=== PATIENT | male | born 1940 | race Hispanic/Latino ===

== ENCOUNTER 2019-02-22 15:53 | Inpatient (IN) | payer MEDICARE ==
--- NOTE | 2019-02-22 16:36 | ED PDOC ---
HPI: General Adult Time Seen by Provider: 02/22/19 16:26 Chief Complaint (Nursing): Abnormal Labs Chief Complaint (Provider): bodyaches/dizziness/ positive blood cultures History Per: Patient (78 y/o male h/o lymphoma recent d/c from hospital after admission for possible pneumonia called back for positive blood cultures noted. States he has dizziness and bodyaches noted. Patient is hearing impaired; has left hearing devices at home. Was noted to have normal cxr but admitted 02/21 for clinical pneumonia.) Past Medical History Reviewed: Historical Data, Nursing Documentation, Vital Signs Vital Signs: Last Vital Signs Temp 97.7 F 02/22/19 16:15 Pulse 84 02/22/19 16:15 Resp 16 02/22/19 16:15 BP 135/80 02/22/19 16:15 Pulse Ox 95 02/22/19 16:15 Primary Care Provider: Procedure,Nonphys - Medical History PMH: Malignancy (lymphoma; currently in remission) - Family History Family History: States: Unknown Family Hx - Home Medications Home Medications: Ambulatory Orders Medication Instructions Recorded Acetaminophen [Tylenol] 650 mg PO Q4 PRN #16 capsule 02/21/19 Azithromycin [Zithromax] 500 mg PO DAILY #7 tab 02/21/19 - Allergies Allergies/Adverse Reactions: Allergies Allergy/AdvReac Type Severity Reaction Status Date / Time No Known Allergies Allergy Verified 02/22/19 16:16 Review of Systems ROS Statement: Except As Marked, All Systems Reviewed And Found Negative Constitutional: Positive for: Malaise Musculoskeletal: Positive for: Other (bodyaches) Neurological: Positive for: Dizziness Physical Exam - Reviewed Nursing Documentation Reviewed: Yes Vital Signs Reviewed: Yes - Physical Exam Appears: Positive for: Well, Non-toxic, No Acute Distress Head Exam: Positive for: ATRAUMATIC, NORMAL INSPECTION, NORMOCEPHALIC Skin: Positive for: Normal Color, Warm, DRY Eye Exam: Positive for: EOMI, Normal appearance, PERRL ENT: Positive for: Normal ENT Inspection Neck: Positive for: Normal, Painless ROM Cardiovascular/Chest: Positive for: Regular Rate, Rhythm Respiratory: Positive for: CNT, Normal Breath Sounds Gastrointestinal/Abdominal: Positive for: Normal Exam, Soft Back: Positive for: Normal Inspection Extremity: Positive for: Normal ROM Neurological/Psych: Positive for: Awake, Alert, Normal Tone - Laboratory Results Result Diagrams: 02/22/19 16:55 02/22/19 16:55 - ECG ECG Rhythm: Positive for: Sinus Rhythm (NSR 81BPM; NO ECTOPY; NO ACUTE CHANGES DONE AT 16:38) O2 Sat by Pulse Oximetry: 95 Disposition - Clinical Impression Clinical Impression: Bacteremia - Patient ED Disposition Is Patient to be Admitted: Yes - Disposition Disposition Time: 16:34 Condition: FAIR - Pt Status Changed To: Hospital Disposition Of: Inpatient - Admit Certification Admit to Inpatient:: After my assessment, the patient will require hospitalization for at least two midnights. This is because of the severity of symptoms shown, intensity of services needed, and/or the medical risk in this patient being treated as an outpatient.
--- NOTE | 2019-02-22 16:50 | CP.PCM.HP ---
<Maciel Duffy - Last Filed: 02/22/19 17:40> History of Present Illness - History of Present Illness History of Present Illness: HPI: 78 yr old M with PMHx of lymphoma in remission presents to ED due to being found to have two sets of positive blood cultures. Pt was admitted on 02/21 for clinical pneumonia and discharged with PO antibiotic therapy. Upon further questioning, patient reports having several days of profuse night sweats, fatigue, generalized malaise and arthralgias. He has contacted his hem/onc dr as well who told him to return for proper treatment. He reports having ureteral stents replaced several months ago and usually gets them replaced every 6 months. Denies urinary symptoms or back pain. No other complaints/concerns. ROS: 12 points reviewed, found to be negative unless otherwise mentioned in HPI [place] [place] PMHx: lymphoma in remission, hx multiple clavicle fractures SurgHx: left total knee replacement, right zygomatic bone repair, FMHx: non contributory SocHx: denies Etoh/drugs; former tobacco use-quit 50 yrs ago Medications: none Allergies: NKDA Present on Admission - Present on Admission Any Indicators Present on Admission: No History of DVT/PE: No History of Uncontrolled Diabetes: No Urinary Catheter: No Decubitus Ulcer Present: No Past Patient History - Past Social History Smoking Status: Former Smoker Alcohol: None Drugs: Denies - PSYCHIATRIC Hx Substance Use: No - SURGICAL HISTORY Other/Comment: Left knee replacement. left shoulder. Bilateral renal stents. Right eye surgery - ANESTHESIA Hx Anesthesia: Yes Hx Anesthesia Reactions: No Meds Allergies/Adverse Reactions: Allergies Allergy/AdvReac Type Severity Reaction Status Date / Time No Known Allergies Allergy Verified 02/22/19 16:16 Physical Exam - Constitutional Appears: Non-toxic, No Acute Distress - Head Exam Head Exam: ATRAUMATIC, NORMOCEPHALIC - Eye Exam Eye Exam: EOMI Pupil Exam: PERRL - ENT Exam ENT Exam: Mucous Membranes Moist - Respiratory Exam Respiratory Exam: Clear to Auscultation Bilateral, NORMAL BREATHING PATTERN - Cardiovascular Exam Cardiovascular Exam: REGULAR RHYTHM, RRR, +S1, +S2. absent: Tachycardia, Gallop, JVD, Rubs, Systolic Murmur - Extremities Exam Extremities exam: Positive for: normal inspection, pedal pulses present. Negative for: pedal edema - Neurological Exam Neurological exam: Alert, CN II-XII Intact, Oriented x3, Reflexes Normal - Psychiatric Exam Psychiatric exam: Normal Affect, Normal Mood - Skin Skin Exam: Dry, Intact, Normal Color, Warm Results - Vital Signs Recent Vital Signs: Last Vital Signs Temp 97.7 F 02/22/19 16:15 Pulse 84 02/22/19 16:15 Resp 16 02/22/19 16:15 BP 135/80 02/22/19 16:15 Pulse Ox 95 02/22/19 16:36 Assessment & Plan - Assessment and Plan (Free Text) Assessment: 78 yr old M with PMHx of lymphoma in remission re-admitted for bacteremia likely secondary to a pulmonary source. Pt is afebrile and hemodynamically stable. Plan: Bacteremia afebrile, mild elevation in leukocytes Blood cultures: gram + cocci x 2 likely pulmonary source start Vancomycin/Zosyn ID Consult pending, recommendations appreciated repeat labs in AM fever control Prophylaxis: Lovenox 40mg SC QD Code Status full code <Walker Anthony D - Last Filed: 02/22/19 17:52> Results - Vital Signs Recent Vital Signs: Last Vital Signs Temp 97.7 F 02/22/19 16:15 Pulse 84 02/22/19 16:15 Resp 16 02/22/19 16:15 BP 135/80 02/22/19 16:15 Pulse Ox 95 02/22/19 17:46 - Labs Labs: Laboratory Results - last 24 hr 02/22/19 16:48 pO2 15 L VBG pH 7.36 VBG pCO2 51 VBG HCO3 24.6 VBG Total CO2 30.4 H VBG O2 Sat (Calc) 17.9 L VBG Base Excess 2.4 H VBG Potassium 4.7 Sodium 135.0 Chloride 103.0 Glucose 101 Lactate 1.6 FiO2 21.0 Venous Blood Potassium 4.7 Attending/Attestation - Attestation I have personally seen and examined this patient.: Yes I have fully participated in the care of the patient.: Yes I have reviewed all pertinent clinical information: Yes Notes (Text): 02/22/19 17:49 Patient seen and examined with resident. Case discussed and agreed with assessment and plan of management. Patient was diagnosed and discharged with URI yesterday but culture came out positive with gram + cocci in 2 bottles. He was called back and admitted for bacteremia.
[2019-02-22 16:54] LABS: VENOUS BLOOD GAS BASE EXCESS 2.4 mmol/L (0.0-2.0); VENOUS BLOOD GAS PCO2 51 mmHg (40-60); VENOUS BLOOD GAS PO2 15 mm/Hg (30-55); VENOUS BLOOD PH 7.36 (7.32-7.43)
[2019-02-22] MEDS: Piperacillin/Tazobact 3.375 GM in Sodium Chloride 0.9% 100 ML IVPB SCH ×2 (17:35→21:46)
[2019-02-22 17:37] LABS: BASO % 0.3 % (0.0-2.0); EOS # 0.1 K/uL (0.0-0.7); EOS % 0.7 % (0.0-4.0); HEMOGLOBIN 12.8 g/dL (12.0-18.0); LYMPH % 21.7 % (20.0-40.0); MEAN CELL VOLUME 94.3 fl (80.0-94.0); MEAN CORPUSCULAR HEMOGLOBIN 31.4 pg (27.0-31.0); MEAN CORPUSCULAR HGB CONC 33.2 g/dL (33.0-37.0); MEAN PLATELET VOLUME 9.4 fl (7.2-11.7); MONO % 11.2 % (0.0-10.0); NEUT % 66.1 % (50.0-75.0); NRBC % 0.1 % (0.0-0.0); RBC 4.08 Mil/uL (4.40-5.90); RED CELL DISTRIBUTION WIDTH 14.6 % (11.5-14.5)
[2019-02-22 17:54] LABS: ALB/GLOB RATIO 1.1 (1.0-2.1); ALBUMIN 3.9 g/dL (3.5-5.0); ALT/SGPT 27 U/L (21-72); AST/SGOT 33 U/L (17-59); BLOOD UREA NITROGEN 25 mg/dl (9-20); CALCIUM 8.9 mg/dL (8.4-10.2); GFR NON-AFRICAN AMERICAN > 60
[2019-02-23] MEDS: Piperacillin/Tazobact 3.375 GM in Sodium Chloride 0.9% 100 ML IVPB SCH ×4 (03:26→23:00)
[2019-02-23 05:32] LABS: BASO % 0.4 % (0.0-2.0); EOS # 0.1 K/uL (0.0-0.7); EOS % 1.6 % (0.0-4.0); LYMPH # 2.2 K/uL (1.0-4.3); LYMPH % 24.8 % (20.0-40.0); MEAN CELL VOLUME 92.6 fl (80.0-94.0); MEAN CORPUSCULAR HEMOGLOBIN 31.5 pg (27.0-31.0); MEAN PLATELET VOLUME 8.6 fl (7.2-11.7); MONO # 0.9 K/uL (0.0-0.8); MONO % 9.9 % (0.0-10.0); NEUT # 5.7 K/uL (1.8-7.0); NEUT % 63.3 % (50.0-75.0); RBC 3.82 Mil/uL (4.40-5.90); RED CELL DISTRIBUTION WIDTH 14.5 % (11.5-14.5)
[2019-02-23 06:06] LABS: ALB/GLOB RATIO 1.1 (1.0-2.1); ALBUMIN 3.5 g/dL (3.5-5.0); ALT/SGPT 28 U/L (21-72); AST/SGOT 26 U/L (17-59); BLOOD UREA NITROGEN 18 mg/dl (9-20); CALCIUM 8.6 mg/dL (8.4-10.2); GFR NON-AFRICAN AMERICAN > 60
[2019-02-23] MEDS: Pantoprazole 40 mg EC Tab PO SCH (09:27)
[2019-02-23] MEDS: Enoxaparin 40 mg Syringe SC SCH (09:28)
--- NOTE | 2019-02-23 10:04 | CP.PCM.PN ---
<Maciel Duffy - Last Filed: 02/23/19 13:21> Subjective - Date & Time of Evaluation Date of Evaluation: 02/23/19 Time of Evaluation: 10:04 - Subjective Subjective: pt seen and evaluated at bedside, no acute events overnight. Low-grade fever last night. Labs/overnight documentation reviewed. Pt reports feeling "a little better today". OOB/ambulating, tolerating PO intake without issue. No other complaints/concerns. Objective - Vital Signs/Intake and Output Vital Signs (last 24 hours): Temp Pulse Resp BP Pulse Ox 98.4 F 82 18 116/68 98 02/23/19 07:52 02/23/19 07:52 02/23/19 07:52 02/23/19 07:52 02/23/19 07:52 - Medications Medications: Current Medications Acetaminophen (Tylenol 325mg Tab) 650 mg PO Q6 PRN PRN Reason: Fever >100.4 F Enoxaparin Sodium (Lovenox) 40 mg SC DAILY MILEY; Protocol Last Admin: 02/23/19 09:28 Dose: 40 mg Piperacillin Sod/Tazobactam (Sod 3.375 gm/ Sodium Chloride) 100 mls @ 100 mls/hr IVPB Q6 MILEY; Protocol Last Admin: 02/23/19 09:27 Dose: 100 mls/hr Vancomycin HCl 1 gm/ Sodium (Chloride) 250 mls @ 166.667 mls/hr IVPB Q12 MILEY; Protocol Last Admin: 02/23/19 09:28 Dose: 166.667 mls/hr Pantoprazole Sodium (Protonix Ec Tab) 40 mg PO DAILY MILEY Last Admin: 02/23/19 09:27 Dose: 40 mg - Labs Labs: 02/23/19 04:20 02/23/19 04:20 - Constitutional Appears: Non-toxic, No Acute Distress - Head Exam Head Exam: ATRAUMATIC, NORMOCEPHALIC Additional comments: no sinus tenderness - Eye Exam Eye Exam: EOMI, Normal appearance, PERRL - ENT Exam ENT Exam: Mucous Membranes Moist, Normal Exam, Normal Oropharynx - Neck Exam Neck Exam: Full ROM, Normal Inspection. absent: Lymphadenopathy, Tenderness - Respiratory Exam Respiratory Exam: Clear to Ausculation Bilateral, NORMAL BREATHING PATTERN. absent: Rales, Rhonchi, Wheezes - Cardiovascular Exam Cardiovascular Exam: REGULAR RHYTHM, RRR, +S1, +S2. absent: JVD, Rubs, Murmur - GI/Abdominal Exam GI & Abdominal Exam: Soft, Normal Bowel Sounds. absent: Guarding, Rigid, Tenderness - Extremities Exam Extremities Exam: Full ROM, Normal Capillary Refill, Normal Inspection. absent: Pedal Edema Additional comments: no maceration or injury at feet or between toes - Neurological Exam Neurological Exam: Alert, Awake, CN II-XII Intact, Normal Gait, Oriented x3 - Psychiatric Exam Psychiatric exam: Normal Affect, Normal Mood - Skin Skin Exam: Dry, Intact, Normal Color, Warm. absent: Erythema, Rash, Vesicles Assessment and Plan - Assessment and Plan (Free Text) Assessment: 78 yr old M with PMHx of lymphoma in remission re-admitted for bacteremia likely secondary to a pulmonary source. Pt is occassionally having low grade fevers and is otherwise hemodynamically stable. Plan: Bacteremia: Abx day #2 afebrile, mild elevation in leukocytes, normalized today Blood cultures: gram + cocci x 2, awaiting 3rd blood culture result likely pulmonary source -repeat CXR on 02/23: improvement in aeration and atelectasis -ECHO completed, results pending start Vancomycin 1gm Q12/Zosyn 3.375 Q6H follow up vancomycin trough ID Consult, pt will require 10 days of treatment, abx day #2 repeat labs in AM fever control Prophylaxis: Lovenox 40mg SC QD Code Status full code <Walker Anthony D - Last Filed: 02/23/19 15:15> Objective - Vital Signs/Intake and Output Vital Signs (last 24 hours): Temp Pulse Resp BP Pulse Ox 97.4 F L 76 18 111/71 98 02/23/19 11:58 02/23/19 11:58 02/23/19 11:58 02/23/19 11:58 02/23/19 11:58 - Medications Medications: Current Medications Acetaminophen (Tylenol 325mg Tab) 650 mg PO Q6 PRN PRN Reason: Fever >100.4 F Enoxaparin Sodium (Lovenox) 40 mg SC DAILY MILEY; Protocol Last Admin: 02/23/19 09:28 Dose: 40 mg Piperacillin Sod/Tazobactam (Sod 3.375 gm/ Sodium Chloride) 100 mls @ 100 mls/hr IVPB Q6 MILEY; Protocol Last Admin: 02/23/19 09:27 Dose: 100 mls/hr Vancomycin HCl 1 gm/ Sodium (Chloride) 250 mls @ 166.667 mls/hr IVPB Q12 MILEY; Protocol Last Admin: 02/23/19 09:28 Dose: 166.667 mls/hr Pantoprazole Sodium (Protonix Ec Tab) 40 mg PO DAILY IMLEY Last Admin: 02/23/19 09:27 Dose: 40 mg - Labs Labs: 02/23/19 04:20 02/23/19 04:20 Attending/Attestation - Attestation I have personally seen and examined this patient.: Yes I have fully participated in the care of the patient.: Yes I have reviewed all pertinent clinical information, including history, physical exam and plan: Yes Notes (Text): 02/23/19 15:15 Patient seen and examined with resident. Case discussed and agreed with assessment and plan.
--- NOTE | 2019-02-23 10:10 | RAD ---
Date of service: 02/23/2019 PROCEDURE: CHEST RADIOGRAPH, 1 VIEW HISTORY: bacteremia COMPARISON: 02/21/2019 FINDINGS: LUNGS: No interval consolidation. The patchy and coalescent coarse bronchovascular markings at the right lung base appear less cord and here improved aeration is now suggested. No interval consolidation noted. Lung volumes appear within normal limits. PLEURA: No pneumothorax or pleural fluid seen. CARDIOVASCULAR: There is presence of aortic atherosclerotic calcification on x-ray. Tortuous thoracic aorta-similar minimal cardiomegaly. OSSEOUS STRUCTURES: Thoraco lumbar spondylosis. Bilateral shoulder arthrosis. Orthopedic anchors in right humeral head/tuberosity ill definition to the right humeral head cortex here similar appearing VISUALIZED UPPER ABDOMEN: Normal. OTHER FINDINGS: None. IMPRESSION: Interval improved aeration. Interval diminished courses bronchovascular marking appearance right medial lung base. Findings suggest improvement-likely some re-expansion of prior atelectatic changes. No interval acute cardiopulmonary pathology appreciated. Other findings as above.
--- NOTE | 2019-02-23 11:36 | CP.PCM.PN ---
Subjective - Date & Time of Evaluation Date of Evaluation: 02/23/19 Time of Evaluation: 08:00 - Subjective Subjective: 78 yr old M with PMHx of lymphoma in remission presents to ED with complaint of dry cough, nasal congestion and intermittent dizziness for 3 days. Associated symptom includes body aches and subjective fever. Blood cultures + for cocci 2/2 sets Patient recalled for IV antibiotic rx Objective - Vital Signs/Intake and Output Vital Signs (last 24 hours): Temp Pulse Resp BP Pulse Ox 98.4 F 82 18 116/68 98 02/23/19 07:52 02/23/19 07:52 02/23/19 07:52 02/23/19 07:52 02/23/19 07:52 - Medications Medications: Current Medications Acetaminophen (Tylenol 325mg Tab) 650 mg PO Q6 PRN PRN Reason: Fever >100.4 F Enoxaparin Sodium (Lovenox) 40 mg SC DAILY MILEY; Protocol Last Admin: 02/23/19 09:28 Dose: 40 mg Piperacillin Sod/Tazobactam (Sod 3.375 gm/ Sodium Chloride) 100 mls @ 100 mls/hr IVPB Q6 MILEY; Protocol Last Admin: 02/23/19 09:27 Dose: 100 mls/hr Vancomycin HCl 1 gm/ Sodium (Chloride) 250 mls @ 166.667 mls/hr IVPB Q12 MILEY; Protocol Last Admin: 02/23/19 09:28 Dose: 166.667 mls/hr Pantoprazole Sodium (Protonix Ec Tab) 40 mg PO DAILY MILEY Last Admin: 02/23/19 09:27 Dose: 40 mg - Labs Labs: 02/23/19 04:20 02/23/19 04:20 - Constitutional Appears: Non-toxic, Chronically Ill - Head Exam Head Exam: NORMOCEPHALIC - Eye Exam Eye Exam: absent: Scleral icterus - ENT Exam ENT Exam: Mucous Membranes Dry - Neck Exam Neck Exam: absent: Lymphadenopathy - Respiratory Exam Respiratory Exam: Decreased Breath Sounds - Cardiovascular Exam Cardiovascular Exam: REGULAR RHYTHM - GI/Abdominal Exam GI & Abdominal Exam: Distended, Soft - Rectal Exam Rectal Exam: Deferred - Exam Exam: NORMAL INSPECTION - Extremities Exam Extremities Exam: absent: Pedal Edema - Back Exam Back Exam: absent: CVA tenderness (L), CVA tenderness (R) - Neurological Exam Neurological Exam: Alert, Awake - Psychiatric Exam Psychiatric exam: Depressed - Skin Skin Exam: Dry Assessment and Plan (1) Bacteremia Status: Acute - Assessment and Plan (Free Text) Assessment: CONT EMPIRIC IV RX
--- NOTE | 2019-02-23 11:45 | PQF ---
PROVIDER RESPONSE TEXT: 1. Probable pulmonary cause of bacteremia 2. Gram + cocci bacteremia, organism pending, no device associated bacteremia REVIEWER QUERY TEXT: Bacteremia Underlying Cause Please read the 2 (two) queries listed below: 1) 02/23 query:Bacteremia is documented in the Medical Record. Please specify the underlying cause of bacteremia (suspected, probable, questionable, or clinical is acceptable if documented at the time of discharge) 2) 02/22 query:previous admission: query remains unanswered at this time: : Please clarify if there i s or is not an additional diagnosis to go along with the following: Pulse: 95->92->96; H and P docu mentation of mild tachycardia with a subjective fever :WBC: 12.1 left shift: blood culture x 2: pre liminary: gram positive cocci; in a patient with a Diagnosis of Clinical Pneumonia with a history of Lymphoma. OR: Unable to determine OR: Other explanation of clinical finding -02/21: Blood cultures x2: preliminary: gram positive cocci 02/21/: ER note: Additional complaints; reports associated dizziness, dry cough, and congestion. He al so a tactile fever last night 0631 On reassessment, patient reports persistent tactile fever; he sta byron he has been in remission for lymphoma x 3 years so not currently immunocompromised. Patient to be admitted due to likely clinical pneumonia; IV rocephin and zithromax started. Clinical Impression: F ever in adult, Pneumonia 02/21: H and P:PMHx of lymphoma in remission presents to ED with complaint of dry cough, nasal congest ion and intermittent dizziness for 3 days. Associated symptom includes body aches and subjective feve r. Assessment: Clinical pneumonia -acute, stable -URI symptoms, mild tachycardia and WBC 12.1, neutro denis 79.4 -CXR: crowding of the bronchovascular markings, limited patchy density right base could ref lect atelectasis or potential infiltrate. 02/23: CXR: Interval improved aeration.Interval diminished courses bronchovascular marking appearance right medial lung base.Findings suggest improvement-likely some re-expansion of prior atelectatic changes.No interval acute cardiopulmonary pathology appreciated. 02/22 ER note: h/ o lymphoma recent d/c from hospital after admission for possible pneumonia called ba ck for + bld. cultures noted.States he has dizziness and bodyaches; noted to have normal cxr admitted 02/21 for clinical pneumonia. Clinical Impression .:Bacteremia 02/22: H and P: PMHx of lymphoma in remission presents to ED due to being found to have two sets of + blood cultures- admitted on 02/21 for clinical pneumonia and d/adalberto with PO AB; Upon further questioni ng, reports having several days of profuse night sweats, fatigue, generalized malaise and arthralgias ; reports having ureteral stents replaced several mnths ago and usually gets them replaced every 6 mo nths. Attestation: was dxed. and d/adalberto with URI yesterday but culture came out +with gram + cocci in 2 eric les; called back and admitted for bacteremia. --IV: vancomycin and piperacillin Please specify associated organism causing bacteremia Please also clarify if bacteremia is due to a device (please specify device) The patient's Clinical Indicators include: --- Query created by: Fany Tolliver on 02/23/2019 11:34 AM Electronically signed by: Maciel Duffy 02/23/2019 11:42 AM
--- NOTE | 2019-02-23 11:52 | CARD ---
APPROVED REPORT Date of service: 02/22/2019 EKG Measurement [id number] <Conclusion> Normal sinus rhythm Normal ECG
--- NOTE | 2019-02-23 12:13 | CP.PCM.CON ---
History of Present Illness - History of Present Illness History of Present Illness: 78 yr old M with PMHx of lymphoma in remission presents to ED with complaint of dry cough, nasal congestion and intermittent dizziness for 3 days. Associated symptom includes body aches and subjective fever. Blood cultures + for cocci 2/2 sets Patient recalled for IV antibiotic rx PMHx: lymphoma in remission, hx multiple clavicle fractures SurgHx: left total knee replacement, right zygomatic bone repair, FMHx: non contributory SocHx: denies Etoh/drugs; former tobacco use-quit 50 yrs ago Medications: none Allergies: NKDA Review of Systems - Review of Systems All systems: reviewed and no additional remarkable complaints except - Constitutional Constitutional: As Per HPI - EENT Eyes: absent: As Per HPI, Blind Spots, Blurred Vision, Change in Vision, Decreased Night Vision, Diplopia, Discharge, Dry Eye, Exophthalmos, Floaters, Irritation, Itchy Eyes, Loss of Peripheral Vision, Pain, Photophobia, Requires Corrective Lenses, Sees Flashes, Spots in Vision, Tunnel Vision, Other Visual Disturbances, Loss of Vision, Other Ears: absent: As Per HPI, Decreased Hearing, Ear Discharge, Ear Pain, Tinnitus, Abnormal Hearing, Disequilibrium, Dizziness, Other Nose/Mouth/Throat: absent: As Per HPI, Epistaxis, Nasal Congestion, Nasal Discharge, Nasal Obstruction, Nasal Trauma, Nose Pain, Post Nasal Drip, Sinus Pain, Sinus Pressure, Bleeding Gums, Change in Voice, Dental Pain, Dry Mouth, Dysphagia, Halitosis, Hoarsness, Lip Swelling, Mouth Lesions, Mouth Pain, Odynophagia, Sore Throat, Throat Swelling, Tongue Swelling, Facial Pain, Neck Pain, Neck Mass, Other - Cardiovascular Cardiovascular: absent: As Per HPI, Acrocyanosis, Chest Pain, Chest Pain at Rest, Chest Pain with Activity, Claudication, Diaphoresis, Dyspnea, Dyspnea on Exertion, Edema, Irregular Heart Rhythm, Pain Radiating to Arm/Neck/Jaw, Leg Edema, Leg Ulcers, Lightheadedness, Orthopnea, Palpitations, Paroxysmal Nocturnal Dyspnea, Pedal Edema, Radiating Pain, Rapid Heart Rate, Slow Heart Rate, Syncope, Other - Respiratory Respiratory: absent: As Per HPI, Cough, Dyspnea, Hemoptysis, Dyspnea on Exertion, Wheezing, Snoring, Stridor, Pain on Inspiration, Chest Congestion, Excessive Mucous Production, Change in Mucous Color, Pain with Coughing, Other - Gastrointestinal Gastrointestinal: absent: As Per HPI, Abdominal Pain, Belching, Bloating, Change in Bowel Habits, Change in Stool Character, Coffee Ground Emesis, Constipation, Cramping, Diarrhea, Dyspepsia, Dysphagia, Early Satiety, Excessive Flatus, Fecal Incontinence, Heartburn, Hematemesis, Hematochezia, Loose Stools, Melena, Nausea, Odynophagia, Temesmus, Vomiting, Other - Genitourinary Genitourinary: absent: As Per HPI, Change in Urinary Stream, Difficulty Urinating, Dysuria, Flank Pain, Hematuria, Pyuria, Nocturia, Urinary Incontinence, Urinary Frequency, Urinary Hesitance, Urinary Urgency, Voiding Freq/Small Amts, Freq UTI, Hx Renal/Bladder Calculi, Hx /Renal Surgery, Bladder Distension, Other - Musculoskeletal Musculoskeletal: absent: As Per HPI, Abnormal Gait, Arthralgias, Atrophy, Back Pain, Deformity, Joint Swelling, Limited Range of Motion, Loss of Height, Muscle Cramps, Muscle Weakness, Myalgias, Neck Pain, Numbness, Radiating Pain into Limb, Stiffness, Tingling, Other - Integumentary Integumentary: absent: As Per HPI, Acne, Alopecia, Bleeding Lesions, Change in Hair, Change in Nails, Change in Pigmentation, Changing Lesions, Dry Skin, E rythema, Furuncle, Hirsutism, Lesions, New Lesions, Non-Healing Lesions, Photosensitivity, Pruritus, Rash, Skin Pain, Skin Ulcer, Sores, Striae, Swelling, Unusual Bruising, Wounds, Jaundice, Other - Neurological Neurological: absent: As Per HPI, Abnormal Gait, Abnormal Hearing, Abnormal Movements, Abnormal Speech, Behavioral Changes, Burning Sensations, Confusion, Convulsions, Disequilibrium, Dizziness, Numbness, Focal Weakness, Frequent Falls, Headaches, Lack of Coordination, Loss of Vision, Memory Loss, Paresthesias, Radicular Pain, Restless Legs, Sensory Deficit, Syncope, Tingling, Tremor, Vertigo, Weakness, Other Visual Disturbances, Other - Psychiatric Psychiatric: absent: As Per HPI, Abnormal Sleep Pattern, Anhedonia, Anxiety, Auditory Hallucinations, Behavioral Changes, Change in Appetite, Change in Libi do, Confusion, Depression, Difficulty Concentrating, Hallucinations, Homicidal Ideation, Hopelessness, Irritability, Memory Loss, Mood Swings, Panic Attacks, Paranoia, Suicidal Ideation, Visual Hallucinations, Tactile Hallucinations, Other - Endocrine Endocrine: absent: As Per HPI, Change in Body Appearance, Change in Libido, Cold Intolorance, Deepening of Voice, Excessive Sweating, Fatigue, Flushing, Heat Intolorance, Increase in Ring/Shoe/Hat Size, Palpitations, Polydipsia, Polyphagia, Polyuria, Other - Hematologic/Lymphatic Hematologic: absent: As Per HPI, Easy Bleeding, Easy Bruising, Lymphadenopathy, Other Past Patient History - Past Social History Smoking Status: Former Smoker Alcohol: None Drugs: Denies - PSYCHIATRIC Hx Substance Use: No - SURGICAL HISTORY Other/Comment: Left knee replacement. left shoulder. Bilateral renal stents. Right eye surgery - ANESTHESIA Hx Anesthesia: Yes Hx Anesthesia Reactions: No Meds Allergies/Adverse Reactions: Allergies Allergy/AdvReac Type Severity Reaction Status Date / Time No Known Allergies Allergy Verified 02/22/19 16:16 - Medications Medications: Current Medications Acetaminophen (Tylenol 325mg Tab) 650 mg PO Q6 PRN PRN Reason: Fever >100.4 F Enoxaparin Sodium (Lovenox) 40 mg SC DAILY [facility]; Protocol Piperacillin Sod/Tazobactam (Sod 3.375 gm/ Sodium Chloride) 100 mls @ 100 mls/hr IVPB Q6 [facility]; Protocol Last Admin: 02/22/19 21:46 Dose: 100 mls/hr Vancomycin HCl 1 gm/ Sodium (Chloride) 250 mls @ 166.667 mls/hr IVPB Q12 [facility]; Protocol Last Admin: 02/22/19 21:35 Dose: 166.667 mls/hr Pantoprazole Sodium (Protonix Ec Tab) 40 mg PO DAILY [facility] Physical Exam - Constitutional Appears: Non-toxic, No Acute Distress, Chronically Ill - Head Exam Head Exam: ATRAUMATIC, NORMAL INSPECTION, NORMOCEPHALIC - Eye Exam Eye Exam: EOMI, Normal appearance, PERRL Pupil Exam: NORMAL ACCOMODATION, PERRL - ENT Exam ENT Exam: Mucous Membranes Moist, Normal Exam - Neck Exam Neck exam: Positive for: Normal Inspection - Respiratory Exam Respiratory Exam: Clear to Auscultation Bilateral, NORMAL BREATHING PATTERN - Cardiovascular Exam Cardiovascular Exam: REGULAR RHYTHM - GI/Abdominal Exam GI & Abdominal Exam: Normal Bowel Sounds, Soft. absent: Tenderness - Rectal Exam Rectal Exam: Deferred - Extremities Exam Extremities exam: Positive for: normal inspection - Back Exam Back exam: NORMAL INSPECTION - Neurological Exam Neurological exam: Alert, CN II-XII Intact, Normal Gait, Oriented x3, Reflexes Normal - Psychiatric Exam Psychiatric exam: Normal Affect, Normal Mood - Skin Skin Exam: Dry, Intact, Normal Color, Warm Results - Vital Signs Recent Vital Signs: Last Vital Signs Temp 97.9 F 02/22/19 21:33 Pulse 84 02/22/19 21:33 Resp 20 02/22/19 21:33 BP 133/79 02/22/19 21:33 Pulse Ox 97 02/22/19 21:33 - Labs Result Diagrams: 02/23/19 04:20 02/23/19 04:20 Labs: Laboratory Results - last 24 hr 02/22/19 02/22/19 02/22/19 16:48 16:55 16:55 WBC 9.0 RBC 4.08 L Hgb 12.8 Hct 38.5 MCV 94.3 H MCH 31.4 H MCHC 33.2 RDW 14.6 H Plt Count 286 MPV 9.4 Neut % (Auto) 66.1 Lymph % (Auto) 21.7 [place] % (Auto) 11.2 H Eos % (Auto) 0.7 Baso % (Auto) 0.3 Neut # (Auto) 6.0 Lymph # (Auto) 2.0 [place] # (Auto) 1.0 H Eos # (Auto) 0.1 Baso # (Auto) 0.0 pO2 15 L VBG pH 7.36 VBG pCO2 51 VBG HCO3 24.6 VBG Total CO2 30.4 H VBG O2 Sat (Calc) 17.9 L VBG Base Excess 2.4 H VBG Potassium 4.7 Sodium 135.0 137 Chloride 103.0 98 Glucose 101 Lactate 1.6 FiO2 21.0 Potassium 4.0 Carbon Dioxide 29 Anion Gap 14 BUN 25 H Creatinine 1.1 Est GFR ( Amer) > 60 Est GFR (Non-Af Amer) > 60 Random Glucose 101 Calcium 8.9 Total Bilirubin 0.5 AST 33 ALT 27 Alkaline Phosphatase 53 Troponin I 0.0990 Total Protein 7.3 Albumin 3.9 Globulin 3.4 Albumin/Globulin Ratio 1.1 Procalcitonin Venous Blood Potassium 4.7 02/22/19 18:00 WBC RBC Hgb Hct MCV MCH MCHC RDW Plt Count MPV Neut % (Auto) Lymph % (Auto) [place] % (Auto) Eos % (Auto) Baso % (Auto) Neut # (Auto) Lymph # (Auto) [place] # (Auto) Eos # (Auto) Baso # (Auto) pO2 VBG pH VBG pCO2 VBG HCO3 VBG Total CO2 VBG O2 Sat (Calc) VBG Base Excess VBG Potassium Sodium Chloride Glucose Lactate FiO2 Potassium Carbon Dioxide Anion Gap BUN Creatinine Est GFR ( Amer) Est GFR (Non-Af Amer) Random Glucose Calcium Total Bilirubin AST ALT Alkaline Phosphatase Troponin I Total Protein Albumin Globulin Albumin/Globulin Ratio Procalcitonin 0.22 Venous Blood Potassium Assessment & Plan (1) Bacteremia Status: Acute - Assessment and Plan (Free Text) Assessment: bacteremia hx lymphoma IV rx ordered empirically
--- NOTE | 2019-02-23 19:22 | CARD ---
APPROVED REPORT Date of service: 02/23/2019 EXAM: Two-dimensional and M-mode echocardiogram with Doppler and color Doppler. Other Information Quality : GoodRhythm : NSR INDICATION Infection: 2D DIMENSIONS IVSd1.04 (0.7-1.1cm)LVDd3.83 (3.9-5.9cm) LVOT Diameter2.45 (1.8-2.4cm)PWd1.18 (0.7-1.1cm) IVSs1.15 (0.8-1.2cm)LVDs3.81 (2.5-4.0cm) FS (%) 0.6 %PWs1.24 (0.8-1.2cm) M-Mode DIMENSIONS Left Atrium (MM)3.79 (2.5-4.0cm)IVSd0.85 (0.7-1.1cm) Aortic Root3.85 (2.2-3.7cm)LVDd6.88 (4.0-5.6cm) Aortic Cusp Exc.1.56 (1.5-2.0cm)PWd0.94 (0.7-1.1cm) IVSs1.18 cmFS (%) 40 % LVDs4.12 (2.0-3.8cm)PWs1.59 cm Aortic Valve AoV Peak Ctdnffft405.5cm/sAoV VTI54.4cmAO Peak GR.31mmHg LVOT Peak Wjatecuf67.5cm/sLVOT VTI19.90cmAO Mean GR.17mmHg DEN (VMAX)0.27uc3XBN (VTI)1.84jf7UX P 1/2 Vnxm404ij Mitral Valve MV E Gvwkmoih42.9cm/sMV DECEL [id number] A Wmgttquc07.0cm/s MV ZHN19yfY/A ratio0.8MVA (PHT)2.92cm2 TDI Lateral E' Peak V5.95cm/sMedial E' Peak V8.64cm/sE/Lateral E'8.9 E/Medial E'6.1 Tricuspid Valve TR Peak Gzilemem647pz/sRAP [id number] Peak Gr.15mmHg [id number] LEFT VENTRICLE The left ventricle is normal size. There is normal left ventricular wall thickness. The left ventricular systolic function is normal. The estimated ejection fraction is 55-60% No regional wall motion abnormalities noted.. Transmitral Doppler flow pattern is Grade I-abnormal relaxation pattern. No left ventricle thrombus noted on this study. There is no ventricular septal defect visualized. There is no left ventricular aneurysm. There is no mass noted in the left ventricle. RIGHT VENTRICLE The right ventricle is normal size. There is normal right ventricular wall thickness. The right ventricular systolic function is normal. ATRIA The left atrium size is normal. The right atrium size is normal. The interatrial septum is intact with no evidence for an atrial septal defect. AORTIC VALVE The aortic valve is tricuspid. Moderate aortic regurgitation is present. Thickened leaflets and cannot rule out vegetation. Consider BRYCE if clinically indicated. There is mild aortic valvular stenosis. Peak aortic velocity was - 3 m/sec. MITRAL VALVE The mitral valve is normal in structure. There is no evidence of mitral valve prolapse. There is no mitral valve stenosis. There is mild mitral valve regurgitation noted. TRICUSPID VALVE The tricuspid valve is normal in structure. There is mild tricuspid valve regurgitation noted. RVSP is calculated at 23 mm Hg. There is no tricuspid valve prolapse or vegetation. There is no tricuspid valve stenosis. PULMONIC VALVE The pulmonary valve is normal in structure. There is no pulmonic valvular regurgitation. There is no pulmonic valvular stenosis. GREAT VESSELS The aortic root is normal in size. The ascending aorta is normal in size. The pulmonary artery is normal. The IVC is normal in size and collapses >50% with inspiration. PERICARDIAL EFFUSION There is no pericardial effusion. There is no pleural effusion. <Conclusion> The estimated ejection fraction is 55-60% Transmitral Doppler flow pattern is Grade I-abnormal relaxation pattern. Moderate aortic regurgitation is present. Thickened leaflets and cannot rule out vegetation. Consider BRYCE if clinically indicated. There is mild aortic valvular stenosis. Peak aortic velocity was - 3 m/sec. There is mild mitral valve regurgitation noted. There is mild tricuspid valve regurgitation noted. RVSP is calculated at 23 mm Hg.
[2019-02-23 21:47] LABS: URINE BILIRUBIN NEGATIVE (NEGATIVE); URINE BLOOD MODERATE (NEGATIVE); URINE CLARITY SLIGHTY-CLOUDY (Clear); URINE COLOR YELLOW (YELLOW); URINE GLUCOSE (UA) NEG (NEGATIVE); URINE LEUKOCYTE ESTERASE NEG Leu/uL (Negative); URINE PROTEIN NEGATIVE (NEGATIVE); URINE URIC ACID CRYSTALS RARE /hpf (<OCC); URINE UROBILINOGEN 0.2-1.0 mg/dL (0.2-1.0)
[2019-02-24] MEDS: Piperacillin/Tazobact 3.375 GM in Sodium Chloride 0.9% 100 ML IVPB SCH ×4 (03:05→21:13)
[2019-02-24 05:45] LABS: HEMOGLOBIN 11.4 g/dL (12.0-18.0); MEAN CELL VOLUME 92.3 fl (80.0-94.0); MEAN CORPUSCULAR HEMOGLOBIN 30.9 pg (27.0-31.0); MEAN CORPUSCULAR HGB CONC 33.5 g/dL (33.0-37.0); RBC 3.69 Mil/uL (4.40-5.90); RED CELL DISTRIBUTION WIDTH 14.3 % (11.5-14.5); WHITE BLOOD COUNT 7.7 K/uL (4.8-10.8)
[2019-02-24 05:49] LABS: ALB/GLOB RATIO 1.1 (1.0-2.1); ALBUMIN 3.2 g/dL (3.5-5.0); ALT/SGPT 31 U/L (21-72); AST/SGOT 27 U/L (17-59); BLOOD UREA NITROGEN 18 mg/dl (9-20); CALCIUM 8.4 mg/dL (8.4-10.2); GFR NON-AFRICAN AMERICAN 59
[2019-02-24] MEDS: Pantoprazole 40 mg EC Tab PO SCH (08:33)
[2019-02-24] MEDS: Enoxaparin 40 mg Syringe SC SCH (08:34)
--- NOTE | 2019-02-24 08:37 | CP.PCM.PN ---
<CliveMaciel - Last Filed: 02/24/19 11:31> Subjective - Date & Time of Evaluation Date of Evaluation: 02/24/19 Time of Evaluation: 08:36 - Subjective Subjective: pt seen and evaluated at bedside. No acute events overnight. Afebrile overnight. Tolerating PO intake. No new complaints/concerns. Objective - Vital Signs/Intake and Output Vital Signs (last 24 hours): Temp Pulse Resp BP Pulse Ox 97.8 F 80 20 104/59 L 97 02/24/19 07:52 02/24/19 07:52 02/24/19 07:52 02/24/19 07:52 02/24/19 07:52 - Medications Medications: Current Medications Acetaminophen (Tylenol 325mg Tab) 650 mg PO Q6 PRN PRN Reason: Fever >100.4 F Enoxaparin Sodium (Lovenox) 40 mg SC DAILY [facility]; Protocol Last Admin: 02/24/19 08:34 Dose: Not Given Piperacillin Sod/Tazobactam (Sod 3.375 gm/ Sodium Chloride) 100 mls @ 100 mls/hr IVPB Q6 [facility]; Protocol Last Admin: 02/24/19 03:05 Dose: 100 mls/hr Vancomycin HCl 1 gm/ Sodium (Chloride) 250 mls @ 166.667 mls/hr IVPB Q12 [facility]; Protocol Last Admin: 02/24/19 08:29 Dose: 166.667 mls/hr Pantoprazole Sodium (Protonix Ec Tab) 40 mg PO DAILY [facility] Last Admin: 02/24/19 08:33 Dose: 40 mg - Labs Labs: 02/24/19 05:10 02/24/19 05:10 - Constitutional Appears: Non-toxic, No Acute Distress - Head Exam Head Exam: ATRAUMATIC, NORMOCEPHALIC - Eye Exam Eye Exam: EOMI Pupil Exam: PERRL - ENT Exam ENT Exam: Mucous Membranes Moist - Respiratory Exam Respiratory Exam: Clear to Ausculation Bilateral, NORMAL BREATHING PATTERN. absent: Rales, Rhonchi, Wheezes - Cardiovascular Exam Cardiovascular Exam: REGULAR RHYTHM, RRR, +S1, +S2. absent: JVD, Rubs, Murmur - GI/Abdominal Exam GI & Abdominal Exam: Soft, Normal Bowel Sounds. absent: Tenderness - Neurological Exam Neurological Exam: Alert, Awake, CN II-XII Intact, Normal Gait, Oriented x3 - Psychiatric Exam Psychiatric exam: Normal Affect, Normal Mood - Skin Skin Exam: Dry, Intact, Normal Color, Warm Assessment and Plan - Assessment and Plan (Free Text) Assessment: 78 yr old M with PMHx of lymphoma in remission re-admitted for bacteremia likely secondary to a pulmonary source. Pt is afebrile today and is hemodynamically st able. Plan: Bacteremia: Abx day #3 -likely pulmonary source -Blood cultures: gram + cocci x 2, repeat cultures negative after 24 hours, sensitivities pending -repeat CXR on 02/23: improvement in aeration and atelectasis -ECHO: LVEF 55-60%, moderate aortic regurgitation, thickened leaflets and cannot rule out vegetation. Mild aortic valvular stenosis. Mild mitral valve regurgitation. Mild Tricuspid regurgitation. RSVP 23mm Hg. -BRYCE ordered, cardiology consult pending -NPO -Vancomycin 1gm Q12/Zosyn 3.375 Q6H -follow up vancomycin trough -procalcitonin 0.11 -ID Consult, pt will require 10 days of treatment, abx day #3 -repeat labs in AM -fever control Prophylaxis: Lovenox 40mg SC QD Code Status full code <Amy Quick - Last Filed: 02/24/19 17:14> Objective - Vital Signs/Intake and Output Vital Signs (last 24 hours): Temp Pulse Resp BP Pulse Ox 98.1 F 86 18 112/67 99 02/24/19 15:54 02/24/19 15:54 02/24/19 15:54 02/24/19 15:54 02/24/19 15:54 - Medications Medications: Current Medications Acetaminophen (Tylenol 325mg Tab) 650 mg PO Q6 PRN PRN Reason: Fever >100.4 F Enoxaparin Sodium (Lovenox) 40 mg SC DAILY [facility]; Protocol Last Admin: 02/24/19 08:34 Dose: Not Given Piperacillin Sod/Tazobactam (Sod 3.375 gm/ Sodium Chloride) 100 mls @ 100 mls/hr IVPB Q6 [facility]; Protocol Last Admin: 02/24/19 09:54 Dose: 100 mls/hr Vancomycin HCl 1 gm/ Sodium (Chloride) 250 mls @ 166.667 mls/hr IVPB Q12 [facility]; Protocol Last Admin: 02/24/19 08:29 Dose: 166.667 mls/hr Pantoprazole Sodium (Protonix Ec Tab) 40 mg PO DAILY [facility] Last Admin: 02/24/19 08:33 Dose: 40 mg - Labs Labs: 02/24/19 05:10 02/24/19 05:10 Attending/Attestation - Attestation I have personally seen and examined this patient.: Yes I have fully participated in the care of the patient.: Yes I have reviewed all pertinent clinical information, including history, physical exam and plan: Yes Notes (Text): Bacteremia, Strep saguis ? etiology Question of Vegetation r/o Endocarditis - cont IV Zosyn and Vanco - ID consulted - Echo ? thickened leaflets - plan for BRYCE in am - NPO from [place], Hold Lovenox - rpt Blood c/s : negative so far - duration of abx will depend upon the presence of vegetation
--- NOTE | 2019-02-24 17:21 | CP.PCM.PN ---
Subjective - Date & Time of Evaluation Date of Evaluation: 02/24/19 Time of Evaluation: 09:00 - Subjective Subjective: IMPROVING BLOOD GROWING STREP SANGUIS RECC : CARDIOEVAL FOR ECHO/BRYCE Objective - Vital Signs/Intake and Output Vital Signs (last 24 hours): Temp Pulse Resp BP Pulse Ox 98.1 F 86 18 112/67 99 02/24/19 15:54 02/24/19 15:54 02/24/19 15:54 02/24/19 15:54 02/24/19 15:54 - Medications Medications: Current Medications Acetaminophen (Tylenol 325mg Tab) 650 mg PO Q6 PRN PRN Reason: Fever >100.4 F Enoxaparin Sodium (Lovenox) 40 mg SC DAILY [facility]; Protocol Last Admin: 02/24/19 08:34 Dose: Not Given Piperacillin Sod/Tazobactam (Sod 3.375 gm/ Sodium Chloride) 100 mls @ 100 mls/hr IVPB Q6 [facility]; Protocol Last Admin: 02/24/19 09:54 Dose: 100 mls/hr Vancomycin HCl 1 gm/ Sodium (Chloride) 250 mls @ 166.667 mls/hr IVPB Q12 [facility]; Protocol Last Admin: 02/24/19 08:29 Dose: 166.667 mls/hr Pantoprazole Sodium (Protonix Ec Tab) 40 mg PO DAILY [facility] Last Admin: 02/24/19 08:33 Dose: 40 mg - Labs Labs: 02/24/19 05:10 02/24/19 05:10 - Constitutional Appears: No Acute Distress, Cachectic, Chronically Ill - Head Exam Head Exam: absent: NORMOCEPHALIC - Eye Exam Eye Exam: absent: Scleral icterus - ENT Exam ENT Exam: Mucous Membranes Dry - Neck Exam Neck Exam: absent: Lymphadenopathy, Thyromegaly - Respiratory Exam Respiratory Exam: Decreased Breath Sounds, Prolonged Expiratory Phase - Cardiovascular Exam Cardiovascular Exam: REGULAR RHYTHM - GI/Abdominal Exam GI & Abdominal Exam: Distended, Soft - Rectal Exam Rectal Exam: Deferred - Exam Exam: NORMAL INSPECTION - Extremities Exam Extremities Exam: absent: Pedal Edema - Back Exam Back Exam: absent: CVA tenderness (L), CVA tenderness (R) - Neurological Exam Neurological Exam: Alert, Awake, Oriented x3 - Psychiatric Exam Psychiatric exam: Depressed - Skin Skin Exam: Dry Assessment and Plan (1) Bacteremia Status: Acute - Assessment and Plan (Free Text) Assessment: REPORTED [place] PRIOR TO ADMISSION WILL NEED BRYCE DR CHING ON BOARD R/O ENDOCARDITIS CONT IV RX
--- NOTE | 2019-02-24 17:49 | CP.PCM.CON ---
History of Present Illness - History of Present Illness History of Present Illness: Resident Consult Note for Dr. Sullivan Patient is a 78 year old male with past medical history of small cell lymphoma now in remission presenting with fever, chills, fatigue and confusion found to be bacteremic failing out patient therapy. Cardiology consulted for imaging findings of thickened leaflets on TTE and indication for BRYCE as two sets of blood cultures are positive for streptococcus sangius. Patient has been on vancomycin and zosyn. Currently patient states that he is feeling overall better, however with persisting chills. He states he has had a murmur for years and previous workup for it has been unremarkable. PMH: small cell lymphoma s/p radiation and chemotherapy PSH: left total knee replacement, right zygomatic bone repair SHx: denies alcohol or illicit drug use, previous smoker quit 50 years ago Allergies: NKDA Review of Systems - Review of Systems All systems: reviewed and no additional remarkable complaints except (as stated in HPI) Past Patient History - Past Medical History & Family History Past Medical History?: Yes - Past Social History Smoking Status: Former Smoker Alcohol: None Drugs: Denies - CARDIAC Hx Cardiac Disorders: No - PULMONARY Hx Respiratory Disorders: No - NEUROLOGICAL Hx Neurological Disorder: No - HEENT Hx HEENT Problems: No - RENAL Hx Chronic Kidney Disease: No - ENDOCRINE/METABOLIC Hx Endocrine Disorders: No - HEMATOLOGICAL/ONCOLOGICAL Hx Blood Disorders: Yes - INTEGUMENTARY Hx Dermatological Problems: No - MUSCULOSKELETAL/RHEUMATOLOGICAL Hx Musculoskeletal Disorders: No Hx Falls: No - GASTROINTESTINAL Hx Gastrointestinal Disorders: No - GENITOURINARY/GYNECOLOGICAL Hx Genitourinary Disorders: No - PSYCHIATRIC Hx Substance Use: No - SURGICAL HISTORY Other/Comment: Left knee replacement. left shoulder. Bilateral renal stents. Right eye surgery - ANESTHESIA Hx Anesthesia: Yes Hx Anesthesia Reactions: No Meds Allergies/Adverse Reactions: Allergies Allergy/AdvReac Type Severity Reaction Status Date / Time No Known Allergies Allergy Verified 02/22/19 16:16 - Medications Medications: Current Medications Acetaminophen (Tylenol 325mg Tab) 650 mg PO Q6 PRN PRN Reason: Fever >100.4 F Enoxaparin Sodium (Lovenox) 40 mg SC DAILY [facility]; Protocol Last Admin: 02/24/19 08:34 Dose: Not Given Piperacillin Sod/Tazobactam (Sod 3.375 gm/ Sodium Chloride) 100 mls @ 100 mls/hr IVPB Q6 [facility]; Protocol Last Admin: 02/24/19 09:54 Dose: 100 mls/hr Vancomycin HCl 1 gm/ Sodium (Chloride) 250 mls @ 166.667 mls/hr IVPB Q12 [facility]; P rotocol Last Admin: 02/24/19 08:29 Dose: 166.667 mls/hr Potassium Chloride/Dextrose/Sod Cl (Potassium Chl 20 Meq In D5-1/2ns) 1,000 mls @ 100 mls/hr IV .Q10H [facility] Stop: 02/25/19 17:30 Pantoprazole Sodium (Protonix Ec Tab) 40 mg PO DAILY [facility] Last Admin: 02/24/19 08:33 Dose: 40 mg Physical Exam - Additional Findings Additional findings: - Constitutional Appears: Non-toxic, No Acute Distress - Head Exam Head Exam: ATRAUMATIC, NORMOCEPHALIC - Eye Exam Eye Exam: EOMI, Normal Appearance - ENT Exam ENT Exam: Mucous Membranes Moist - Respiratory Exam Respiratory Exam: Clear to Auscultation Bilateral, NORMAL BREATHING PATTERN - Cardiovascular Exam Cardiovascular Exam: REGULAR RHYTHM, RRR, +S1, +S2, Murmur. absent: Tachycardia - Extremities Exam Extremities exam: Positive for: normal inspection, pedal pulses present. Negative for: pedal edema - Neurological Exam Neurological exam: Alert, CN II-XII Intact, Oriented x3 - Psychiatric Exam Psychiatric exam: Normal Affect, Normal Mood - Skin Skin Exam: Dry, Intact, Normal Color, Warm Results - Vital Signs Recent Vital Signs: Last Vital Signs Temp 98.1 F 02/24/19 15:54 Pulse 86 02/24/19 15:54 Resp 18 02/24/19 15:54 BP 112/67 02/24/19 15:54 Pulse Ox 99 02/24/19 15:54 - Labs Result Diagrams: 02/24/19 05:10 02/24/19 05:10 Labs: Laboratory Results - last 24 hr 02/23/19 02/23/19 02/24/19 12:57 21:30 05:10 WBC 7.7 RBC 3.69 L Hgb 11.4 L Hct 34.0 L MCV 92.3 MCH 30.9 MCHC 33.5 RDW 14.3 Plt Count 276 Sodium Potassium Chloride Carbon Dioxide Anion Gap BUN Creatinine Est GFR ( Amer) Est GFR (Non-Af Amer) Random Glucose Calcium Total Bilirubin AST ALT Alkaline Phosphatase Total Protein Albumin Globulin Albumin/Globulin Ratio Procalcitonin 0.11 L Urine Color Yellow Urine Clarity Slighty-cloudy Urine pH 5.0 Ur Specific [place] 1.018 Urine Protein Negative Urine Glucose (UA) Neg Urine Ketones Negative Urine Blood Moderate Urine Nitrate Negative Urine Bilirubin Negative Urine Urobilinogen 0.2-1.0 Ur Leukocyte Esterase Neg Urine RBC (Auto) 15 H Urine Microscopic WBC 3 Uric Acid Crystals Rare Vancomycin Trough 02/24/19 02/24/19 05:10 09:50 WBC RBC Hgb Hct MCV MCH MCHC RDW Plt Count Sodium 132 Potassium 3.8 Chloride 100 Carbon Dioxide 24 Anion Gap 12 BUN 18 Creatinine 1.2 Est GFR ( Amer) > 60 Est GFR (Non-Af Amer) 59 Random Glucose 91 Calcium 8.4 Total Bilirubin 0.7 AST 27 ALT 31 Alkaline Phosphatase 43 Total Protein 6.2 L Albumin 3.2 L Globulin 3.0 Albumin/Globulin Ratio 1.1 Procalcitonin Urine Color Urine Clarity Urine pH Ur Specific [place] Urine Protein Urine Glucose (UA) Urine Ketones Urine Blood Urine Nitrate Urine Bilirubin Urine Urobilinogen Ur Leukocyte Esterase Urine RBC (Auto) Urine Microscopic WBC Uric Acid Crystals Vancomycin Trough 12.0 H Assessment & Plan - Assessment and Plan (Free Text) Plan: Bacteremia - ECHO shows thickened leaflets cannot rule out vegetation - blood cultures x2 positive for streptococcus sangius - repeat blood cultures negative - afebrile, negative leukocytosis - on vancomycin and zosyn - plan for BRYCE tomorrow
[2019-02-24] MEDS ORDERED: Potassium Ch 20mEq in D5-1/2NS 1,000 ML IV SCH (23:50)
[2019-02-25] MEDS: Piperacillin/Tazobact 3.375 GM in Sodium Chloride 0.9% 100 ML IVPB SCH ×2 (04:34→09:00)
[2019-02-25 06:15] LABS: HEMOGLOBIN 11.8 g/dL (12.0-18.0); MEAN CELL VOLUME 92.2 fl (80.0-94.0); MEAN CORPUSCULAR HEMOGLOBIN 31.1 pg (27.0-31.0); MEAN CORPUSCULAR HGB CONC 33.7 g/dL (33.0-37.0); RBC 3.79 Mil/uL (4.40-5.90); RED CELL DISTRIBUTION WIDTH 14.1 % (11.5-14.5); WHITE BLOOD COUNT 7.5 K/uL (4.8-10.8)
[2019-02-25 06:26] LABS: ALB/GLOB RATIO 1.1 (1.0-2.1); ALBUMIN 3.3 g/dL (3.5-5.0); ALT/SGPT 23 U/L (21-72); AST/SGOT 21 U/L (17-59); BLOOD UREA NITROGEN 18 mg/dl (9-20); CALCIUM 8.3 mg/dL (8.4-10.2); GFR NON-AFRICAN AMERICAN > 60
--- NOTE | 2019-02-25 08:44 | CP.PCM.PN ---
Subjective - Date & Time of Evaluation Date of Evaluation: 02/25/19 Time of Evaluation: 08:30 - Subjective Subjective: Foreign Young, PGY1 Progress Note for Dr. Sullivan: Pt was seen and examined this AM at bedside. Pt had no acute overnight events. Pt states that he has no acute events at this time. Pt will be going for BRYCE today to evaluate for endocarditis. Objective - Vital Signs/Intake and Output Vital Signs (last 24 hours): Temp Pulse Resp BP Pulse Ox 98.5 F 71 20 100/64 97 02/25/19 07:56 02/25/19 07:56 02/25/19 07:56 02/25/19 07:56 02/25/19 07:56 - Medications Medications: Current Medications Acetaminophen (Tylenol 325mg Tab) 650 mg PO Q6 PRN PRN Reason: Fever >100.4 F Enoxaparin Sodium (Lovenox) 40 mg SC DAILY [facility]; Protocol Last Admin: 02/24/19 08:34 Dose: Not Given Piperacillin Sod/Tazobactam (Sod 3.375 gm/ Sodium Chloride) 100 mls @ 100 mls/hr IVPB Q6 [facility]; Protocol Last Admin: 02/25/19 04:34 Dose: 100 mls/hr Vancomycin HCl 1 gm/ Sodium (Chloride) 250 mls @ 166.667 mls/hr IVPB Q12 [facility]; Protocol Last Admin: 02/24/19 21:11 Dose: 166.667 mls/hr Potassium Chloride/Dextrose/Sod Cl (Potassium Chl 20 Meq In D5-1/2ns) 1,000 mls @ 100 mls/hr IV .Q10H [facility] Stop: 02/25/19 17:30 Last Admin: 02/25/19 00:05 Dose: 100 mls/hr Pantoprazole Sodium (Protonix Ec Tab) 40 mg PO DAILY [facility] Last Admin: 02/24/19 08:33 Dose: 40 mg - Labs Labs: 02/25/19 04:45 02/25/19 04:45 - Constitutional Appears: Non-toxic, No Acute Distress - Head Exam Head Exam: ATRAUMATIC, NORMOCEPHALIC - Eye Exam Eye Exam: EOMI, Normal Appearance - ENT Exam ENT Exam: Mucous Membranes Moist - Respiratory Exam Respiratory Exam: Clear to Auscultation Bilateral, NORMAL BREATHING PATTERN - Cardiovascular Exam Cardiovascular Exam: REGULAR RHYTHM, RRR, +S1, +S2, Murmur. absent: Tachycardia - Extremities Exam Extremities exam: Positive for: normal inspection, pedal pulses present. Negative for: pedal edema - Neurological Exam Neurological exam: Alert, CN II-XII Intact, Oriented x3 - Psychiatric Exam Psychiatric exam: Normal Affect, Normal Mood - Skin Skin Exam: Dry, Intact, Normal Color, Warm Assessment and Plan - Assessment and Plan (Free Text) Plan: Bacteremia - ECHO shows thickened leaflets cannot rule out vegetation - blood cultures x2 positive for streptococcus sangius - repeat blood cultures negative x 48 hrs - afebrile, negative leukocytosis - on vancomycin and zosyn - BRYCE Today, no vegetations noted
[2019-02-25] MEDS ORDERED: Succinylcholine 200 mg/10 ml Inj IV ONE (08:57)
[2019-02-25] MEDS ORDERED: Lidocaine 2% GEL TOP ONE (09:16)
[2019-02-25] MEDS ORDERED: BENZOCAINE SPR MM ONE (09:16)
[2019-02-25] MEDS ORDERED: Propofol 10 mg/ml Inj (20 ML) ONE (09:29)
[2019-02-25] MEDS ORDERED: Etomidate 20 mg/10ml Inj IV ONE (09:29)
[2019-02-25] MEDS ORDERED: Lidocaine 1% 5ml Abboject ONE (09:30)
[2019-02-25] MEDS ORDERED: Midazolam 2 MG/2 ML VIAL ONE (09:30)
[2019-02-25] MEDS ORDERED: Povidone Iodine Topical 10% Sol ONE (10:31)
[2019-02-25] MEDS ORDERED: Naloxone 0.4 mg/ml Inj (Adult) ONE (10:37)
[2019-02-25] MEDS ORDERED: Flumazenil 0.1 mg/ml Inj (5ml) IVP ONE (10:47)
--- NOTE | 2019-02-25 11:12 | CP.PCM.PN ---
Subjective - Date & Time of Evaluation Date of Evaluation: 02/25/19 Time of Evaluation: 11:11 - Subjective Subjective: No acute overnight events. Patient for BRYCE today. NPO status maintained. Follow up BRYCE results. Day # 4 of IV abx Objective - Vital Signs/Intake and Output Vital Signs (last 24 hours): Temp Pulse Resp BP Pulse Ox 98.5 F 71 20 100/64 97 02/25/19 07:56 02/25/19 07:56 02/25/19 07:56 02/25/19 07:56 02/25/19 07:56 - Medications Medications: Current Medications Acetaminophen (Tylenol 325mg Tab) 650 mg PO Q6 PRN PRN Reason: Fever >100.4 F Enoxaparin Sodium (Lovenox) 40 mg SC DAILY [facility]; Protocol Last Admin: 02/24/19 08:34 Dose: Not Given Piperacillin Sod/Tazobactam (Sod 3.375 gm/ Sodium Chloride) 100 mls @ 100 mls/hr IVPB Q6 [facility]; Protocol Last Admin: 02/25/19 09:00 Dose: 100 mls/hr Vancomycin HCl 1 gm/ Sodium (Chloride) 250 mls @ 166.667 mls/hr IVPB Q12 [facility]; Protocol Last Admin: 02/25/19 09:00 Dose: 166.667 mls/hr Potassium Chloride/Dextrose/Sod Cl (Potassium Chl 20 Meq In D5-1/2ns) 1,000 mls @ 100 mls/hr IV .Q10H [facility] Stop: 02/25/19 17:30 Last Admin: 02/25/19 00:05 Dose: 100 mls/hr Pantoprazole Sodium (Protonix Ec Tab) 40 mg PO DAILY [facility] Last Admin: 02/24/19 08:33 Dose: 40 mg - Labs Labs: 02/25/19 04:45 02/25/19 04:45
[2019-02-25] MEDS ORDERED: Sodium Chloride 0.9% 1,000 ML IV SCH (11:15)
[2019-02-25] MEDS: Pantoprazole 40 mg EC Tab PO SCH (11:35)
[2019-02-25 11:51] VITALS: RESP 18; TEMP 98.6
[2019-02-25] MEDS ORDERED: Sodium Chloride 0.9% 1,000 ML IV ONE (12:10)
--- NOTE | 2019-02-25 12:27 | CP.PCM.DIS ---
<Tammy Macias - Last Filed: 02/25/19 12:32> Provider - Provider Date of Admission: 02/22/19 16:34 Attending physician: Walker Anthony MD Consults: 02/22/19 16:37 Infectious Disease Consult Stat Comment: positive blood cx Consulting Provider: Karl Roberts Consulting Physician: Karl Roberts Reason for Consult: positive blood cx 02/24/19 09:50 Cardiology Consult Routine Comment: Consulting Provider: Obed Sullivan Consulting Physician: Obed Sullivan Reason for Consult: thickened leaflets on TTE, gram + bacteremia, needs BRYCE Time Spent in preparation of Discharge (in minutes): 35 Diagnosis - Discharge Diagnosis (1) Bacteremia Status: Acute Comment: Has completed 4 days of IV antibiotics. Will require total of 10 days of IV antibiotics. Hospital Course - Lab Results Lab Results: Micro Results 02/23/19 21:30 Urine,Clean Catch Urine Culture - Final No Growth (<1,000 CFU/ML) 02/22/19 16:55 Blood-Venous Blood Culture - Preliminary NO GROWTH AFTER 48 HOURS 02/22/19 17:10 Blood-Venous Blood Culture - Preliminary NO GROWTH AFTER 48 HOURS Most Recent Lab Values WBC 7.5 K/uL (4.8-10.8) 02/25/19 04:45 RBC 3.79 Mil/uL (4.40-5.90) L 02/25/19 04:45 Hgb 11.8 g/dL (12.0-18.0) L 02/25/19 04:45 Hct 35.0 % (35.0-51.0) 02/25/19 04:45 MCV 92.2 fl (80.0-94.0) 02/25/19 04:45 MCH 31.1 pg (27.0-31.0) H 02/25/19 04:45 MCHC 33.7 g/dL (33.0-37.0) 02/25/19 04:45 RDW 14.1 % (11.5-14.5) 02/25/19 04:45 Plt Count 265 K/uL (130-400) 02/25/19 04:45 MPV 8.6 fl (7.2-11.7) 02/23/19 04:20 Neut % (Auto) 63.3 % (50.0-75.0) 02/23/19 04:20 Lymph % (Auto) 24.8 % (20.0-40.0) 02/23/19 04:20 [facility] % (Auto) 9.9 % (0.0-10.0) 02/23/19 04:20 Eos % (Auto) 1.6 % (0.0-4.0) 02/23/19 04:20 Baso % (Auto) 0.4 % (0.0-2.0) 02/23/19 04:20 Neut # (Auto) 5.7 K/uL (1.8-7.0) 02/23/19 04:20 Lymph # (Auto) 2.2 K/uL (1.0-4.3) 02/23/19 04:20 [facility] # (Auto) 0.9 K/uL (0.0-0.8) H 02/23/19 04:20 Eos # (Auto) 0.1 K/uL (0.0-0.7) 02/23/19 04:20 Baso # (Auto) 0.0 K/uL (0.0-0.2) 02/23/19 04:20 pO2 15 mm/Hg (30-55) L 02/22/19 16:48 VBG pH 7.36 (7.32-7.43) 02/22/19 16:48 VBG pCO2 51 mmHg (40-60) 02/22/19 16:48 VBG HCO3 24.6 mmol/L 02/22/19 16:48 VBG Total CO2 30.4 mmol/L (22-28) H 02/22/19 16:48 VBG O2 Sat (Calc) 17.9 % (40-65) L 02/22/19 16:48 VBG Base Excess 2.4 mmol/L (0.0-2.0) H 02/22/19 16:48 VBG Potassium 4.7 mmol/L (3.6-5.2) 02/22/19 16:48 Sodium 135.0 mmol/L (132-148) 02/22/19 16:48 Chloride 103.0 mmol/L (98-107) 02/22/19 16:48 Glucose 101 mg/dL (75-110) 02/22/19 16:48 Lactate 1.6 mmol/L (0.7-2.1) 02/22/19 16:48 FiO2 21.0 % 02/22/19 16:48 Sodium 134 mmol/l (132-148) 02/25/19 04:45 Potassium 4.0 MMOL/L (3.6-5.0) 02/25/19 04:45 Chloride 100 mmol/L (98-107) 02/25/19 04:45 Carbon Dioxide 25 mmol/L (22-30) 02/25/19 04:45 Anion Gap 13 (10-20) 02/25/19 04:45 BUN 18 mg/dl (9-20) 02/25/19 04:45 Creatinine 1.1 mg/dl (0.8-1.5) 02/25/19 04:45 Est GFR ( Amer) > 60 02/25/19 04:45 Est GFR (Non-Af Amer) > 60 02/25/19 04:45 Random Glucose 90 mg/dL (75-110) 02/25/19 04:45 Calcium 8.3 mg/dL (8.4-10.2) L 02/25/19 04:45 Total Bilirubin 0.5 mg/dl (0.2-1.3) 02/25/19 04:45 AST 21 U/L (17-59) 02/25/19 04:45 ALT 23 U/L (21-72) 02/25/19 04:45 Alkaline Phosphatase 39 U/L (38-126) 02/25/19 04:45 Troponin I 0.0990 ng/mL (0.00-0.120) 02/22/19 16:55 Total Protein 6.2 G/DL (6.3-8.2) L 02/25/19 04:45 Albumin 3.3 g/dL (3.5-5.0) L 02/25/19 04:45 Globulin 2.9 gm/dL (2.2-3.9) 02/25/19 04:45 Albumin/Globulin Ratio 1.1 (1.0-2.1) 02/25/19 04:45 Procalcitonin 0.11 NG/ML (0.19-0.49) L 02/23/19 12:57 Venous Blood Potassium 4.7 mmol/L (3.6-5.2) 02/22/19 16:48 Urine Color Yellow (YELLOW) 02/23/19 21:30 Urine Clarity Slighty-cloudy (Clear) 02/23/19 21:30 Urine pH 5.0 (5.0-8.0) 02/23/19 21:30 Ur Specific [place] 1.018 (1.003-1.030) 02/23/19 21:30 Urine Protein Negative mg/dL (NEGATIVE) 02/23/19 21:30 Urine Glucose (UA) Neg mg/dL (NEGATIVE) 02/23/19 21:30 Urine Ketones Negative mg/dL (NEGATIVE) 02/23/19 21: Urine Blood Moderate (NEGATIVE) 02/23/19 21: Urine Nitrate Negative (NEGATIVE) 02/23/19: Urine Bilirubin Negative (NEGATIVE) 02/23/19 21: Urine Urobilinogen 0.2-1.0 mg/dL (0.2-1.0) 02/23/19 21:30 Ur Leukocyte Esterase Neg Jett/uL (Negative) 02/23/19 21:30 Urine RBC (Auto) 15 /hpf (0-3) H 02/23/19 21:30 Urine Microscopic WBC 3 /hpf (0-5) 02/23/19 21:30 Uric Acid Crystals Rare /hpf (<OCC) 02/23/19 21:30 Vancomycin Trough 12.0 ug/mL (5.0-10.0) H 02/24/19 09:50 - Hospital Course Hospital Course: 78 yr old M with PMHx of lymphoma in remission re-admitted for bacteremia likely secondary to a pulmonary source. Pt is afebrile today and is hemodynamically stable. He had positive blood cultures x 2, gram + cocci, repeat cultures subsequently negative. Echocardiogram 55-60% EF with thickened leaflets, BRYCE was negative for vegetations. Day #4 of IV antibiotics. Patient to be discharged to TCU for further ABx treatment for total of 10 days. Discharge Exam - Head Exam Head Exam: ATRAUMATIC, NORMAL INSPECTION, NORMOCEPHALIC - Respiratory Exam Respiratory Exam: NORMAL BREATHING PATTERN - Cardiovascular Exam Cardiovascular Exam: REGULAR RHYTHM, +S1, +S2 - GI/Abdominal Exam GI & Abdominal Exam: Normal Bowel Sounds - Extremities Exam Extremities exam: full ROM - Neurological Exam Neurological exam: Alert, CN II-XII Intact - Skin Skin Exam: Normal Color Discharge Plan - Follow Up Plan Condition: FAIR Disposition: TRANSF TO SNF Instructions: Sepsis, Adult (DC) Referrals: Obed Sullivan MD [Staff Provider] - Walker Anthony MD [Staff Provider] - <Amy Quick - Last Filed: 02/25/19 14:37> Provider - Provider Date of Admission: 02/22/19 16:34 Attending physician: Walker Anthony MD Consults: 02/22/19 16:37 Infectious Disease Consult Stat Comment: positive blood cx Consulting Provider: Karl Roberts Consulting Physician: Karl Roberts Reason for Consult: positive blood cx 02/24/19 09:50 Cardiology Consult Routine Comment: Consulting Provider: Obed Sullivan Consulting Physician: Obed Sullivan Reason for Consult: thickened leaflets on TTE, gram + bacteremia, needs BRYCE Hospital Course - Lab Results Lab Results: Micro Results 02/23/19 21:30 Urine,Clean Catch Urine Culture - Final No Growth (<1,000 CFU/ML) 02/22/19 16:55 Blood-Venous Blood Culture - Preliminary NO GROWTH AFTER 48 HOURS 02/22/19 17:10 Blood-Venous Blood Culture - Preliminary NO GROWTH AFTER 48 HOURS Most Recent Lab Values WBC 7.5 K/uL (4.8-10.8) 02/25/19 04:45 RBC 3.79 Mil/uL (4.40-5.90) L 02/25/19 04:45 Hgb 11.8 g/dL (12.0-18.0) L 02/25/19 04:45 Hct 35.0 % (35.0-51.0) 02/25/19 04:45 MCV 92.2 fl (80.0-94.0) 02/25/19 04:45 MCH 31.1 pg (27.0-31.0) H 02/25/19 04:45 MCHC 33.7 g/dL (33.0-37.0) 02/25/19 04:45 RDW 14.1 % (11.5-14.5) 02/25/19 04:45 Plt Count 265 K/uL (130-400) 02/25/19 04:45 MPV 8.6 fl (7.2-11.7) 02/23/19 04:20 Neut % (Auto) 63.3 % (50.0-75.0) 02/23/19 04:20 Lymph % (Auto) 24.8 % (20.0-40.0) 02/23/19 04:20 [facility] % (Auto) 9.9 % (0.0-10.0) 02/23/19 04:20 Eos % (Auto) 1.6 % (0.0-4.0) 02/23/19 04:20 Baso % (Auto) 0.4 % (0.0-2.0) 02/23/19 04:20 Neut # (Auto) 5.7 K/uL (1.8-7.0) 02/23/19 04:20 Lymph # (Auto) 2.2 K/uL (1.0-4.3) 02/23/19 04:20 [facility] # (Auto) 0.9 K/uL (0.0-0.8) H 02/23/19 04:20 Eos # (Auto) 0.1 K/uL (0.0-0.7) 02/23/19 04:20 Baso # (Auto) 0.0 K/uL (0.0-0.2) 02/23/19 04:20 pO2 15 mm/Hg (30-55) L 02/22/19 16:48 VBG pH 7.36 (7.32-7.43) 02/22/19 16:48 VBG pCO2 51 mmHg (40-60) 02/22/19 16:48 VBG HCO3 24.6 mmol/L 02/22/19 16:48 VBG Total CO2 30.4 mmol/L (22-28) H 02/22/19 16:48 VBG O2 Sat (Calc) 17.9 % (40-65) L 02/22/19 16:48 VBG Base Excess 2.4 mmol/L (0.0-2.0) H 02/22/19 16:48 VBG Potassium 4.7 mmol/L (3.6-5.2) 02/22/19 16:48 Sodium 135.0 mmol/L (132-148) 02/22/19 16:48 Chloride 103.0 mmol/L (98-107) 02/22/19 16:48 Glucose 101 mg/dL (75-110) 02/22/19 16:48 Lactate 1.6 mmol/L (0.7-2.1) 02/22/19 16:48 FiO2 21.0 % 02/22/19 16:48 Sodium 134 mmol/l (132-148) 02/25/19 04:45 Potassium 4.0 MMOL/L (3.6-5.0) 02/25/19 04:45 Chloride 100 mmol/L (98-107) 02/25/19 04:45 Carbon Dioxide 25 mmol/L (22-30) 02/25/19 04:45 Anion Gap 13 (10-20) 02/25/19 04:45 BUN 18 mg/dl (9-20) 02/25/19 04:45 Creatinine 1.1 mg/dl (0.8-1.5) 02/25/19 04:45 Est GFR ( Amer) > 60 02/25/19 04:45 Est GFR (Non-Af Amer) > 60 02/25/19 04:45 Random Glucose 90 mg/dL (75-110) 02/25/19 04:45 Calcium 8.3 mg/dL (8.4-10.2) L 02/25/19 04:45 Total Bilirubin 0.5 mg/dl (0.2-1.3) 02/25/19 04:45 AST 21 U/L (17-59) 02/25/19 04:45 ALT 23 U/L (21-72) 02/25/19 04:45 Alkaline Phosphatase 39 U/L (38-126) 02/25/19 04:45 Troponin I 0.0990 ng/mL (0.00-0.120) 02/22/19 16:55 Total Protein 6.2 G/DL (6.3-8.2) L 02/25/19 04:45 Albumin 3.3 g/dL (3.5-5.0) L 02/25/19 04:45 Globulin 2.9 gm/dL (2.2-3.9) 02/25/19 04:45 Albumin/Globulin Ratio 1.1 (1.0-2.1) 02/25/19 04:45 Procalcitonin 0.11 NG/ML (0.19-0.49) L 02/23/19 12:57 Venous Blood Potassium 4.7 mmol/L (3.6-5.2) 02/22/19 16:48 Urine Color Yellow (YELLOW) 02/23/19 21:30 Urine Clarity Slighty-cloudy (Clear) 02/23/19 21:30 Urine pH 5.0 (5.0-8.0) 02/23/19 21:30 Ur Specific [place] 1.018 (1.003-1.030) 02/23/19 21:30 Urine Protein Negative mg/dL (NEGATIVE) 02/23/19 21:30 Urine Glucose (UA) Neg mg/dL (NEGATIVE) 02/23/19 21: Urine Ketones Negative mg/dL (NEGATIVE) 02/23/19 21: Urine Blood Moderate (NEGATIVE) 02/23/19 21:30 Urine Nitrate Negative (NEGATIVE) 02/23/19 21:30 Urine Bilirubin Negative (NEGATIVE) 02/23/19 21:30 Urine Urobilinogen 0.2-1.0 mg/dL (0.2-1.0) 02/23/19 21:30 Ur Leukocyte Esterase Neg Jett/uL (Negative) 02/23/19 21:30 Urine RBC (Auto) 15 /hpf (0-3) H 02/23/19 21:30 Urine Microscopic WBC 3 /hpf (0-5) 02/23/19 21:30 Uric Acid Crystals Rare /hpf (<OCC) 02/23/19 21:30 Vancomycin Trough 12.0 ug/mL (5.0-10.0) H 02/24/19 09:50 Attending/Attestation - Attestation I have personally seen and examined this patient.: Yes I have fully participated in the care of the patient.: Yes I have reviewed all pertinent clinical information, including history, physical exam and plan: Yes Notes (Text): Bacteremia, Strep sanguis etiology unclear Vegetation / Endocarditis ruled out - BRYCE done did not show any vegetation - d/c pt to TCU to continue IV antibiotics - cont IV Zosyn and Vanco x 10 days - ID consulted - Echo : thickened leaflets - rpt Blood c/s : negative so far
[2019-02-25 12:29] VITALS: O2SAT 98
[2019-02-25 12:30] VITALS: BP 135/76; PULSE 73
--- NOTE | 2019-02-25 13:20 | CP.PCM.PN ---
Subjective - Date & Time of Evaluation Date of Evaluation: 02/25/19 Time of Evaluation: 07:00 - Subjective Subjective: BRYCE reportedly negative appears weak and cyanotic supplemental O2 ordered cont iv rx Objective - Vital Signs/Intake and Output Vital Signs (last 24 hours): Temp Pulse Resp BP Pulse Ox 98.6 F 73 18 135/76 98 02/25/19 11:08 02/25/19 12:10 02/25/19 12:10 02/25/19 12:10 02/25/19 12:10 Intake and Output: 02/25/19 02/25/19 06:59 18:59 Intake Total 100 Balance 100 - Medications Medications: Current Medications Acetaminophen (Tylenol 325mg Tab) 650 mg PO Q6 PRN PRN Reason: Fever >100.4 F Enoxaparin Sodium (Lovenox) 40 mg SC DAILY [facility]; Protocol Last Admin: 02/24/19 08:34 Dose: Not Given Piperacillin Sod/Tazobactam (Sod 3.375 gm/ Sodium Chloride) 100 mls @ 100 mls/hr IVPB Q6 [facility]; Protocol Last Admin: 02/25/19 09:00 Dose: 100 mls/hr Vancomycin HCl 1 gm/ Sodium (Chloride) 250 mls @ 166.667 mls/hr IVPB Q12 [facility]; Protocol Last Admin: 02/25/19 09:00 Dose: 166.667 mls/hr Potassium Chloride/Dextrose/Sod Cl (Potassium Chl 20 Meq In D5-1/2ns) 1,000 mls @ 100 mls/hr IV .Q10H [facility] Stop: 02/25/19 17:30 Last Admin: 02/25/19 00:05 Dose: 100 mls/hr Sodium Chloride (Sodium Chloride 0.9%) 1,000 mls @ 100 mls/hr IV .Q10H [facility] Pantoprazole Sodium (Protonix Ec Tab) 40 mg PO DAILY [facility] Last Admin: 02/25/19 11:35 Dose: Not Given - Labs Labs: 02/25/19 04:45 02/25/19 04:45 - Constitutional Appears: Cachectic, Chronically Ill - Head Exam Head Exam: ATRAUMATIC, NORMAL INSPECTION, NORMOCEPHALIC - Eye Exam Eye Exam: EOMI, Normal appearance, PERRL Pupil Exam: NORMAL ACCOMODATION, PERRL - ENT Exam ENT Exam: Mucous Membranes Moist, Normal Exam - Neck Exam Neck Exam: Full ROM, Normal Inspection. absent: Lymphadenopathy - Respiratory Exam Respiratory Exam: Decreased Breath Sounds, Prolonged Expiratory Phase, Rhonchi - Cardiovascular Exam Cardiovascular Exam: REGULAR RHYTHM, +S1, +S2. absent: Murmur - GI/Abdominal Exam GI & Abdominal Exam: Soft, Normal Bowel Sounds. absent: Tenderness - Rectal Exam Rectal Exam: Deferred - Exam Exam: NORMAL INSPECTION - Extremities Exam Extremities Exam: Full ROM, Normal Capillary Refill, Normal Inspection. absent: Joint Swelling, Pedal Edema - Back Exam Back Exam: NORMAL INSPECTION - Neurological Exam Neurological Exam: Alert, Awake, CN II-XII Intact, Normal Gait, Oriented x3 - Psychiatric Exam Psychiatric exam: Normal Affect, Normal Mood - Skin Skin Exam: Dry, Intact, Normal Color, Warm Assessment and Plan (1) Bacteremia Status: Acute - Assessment and Plan (Free Text) Assessment: BRYCE negative cont Rx foir 14 daysw for bacterial sepsis and pneumonia prognosis guarded
--- NOTE | 2019-02-27 19:05 | CARD ---
APPROVED REPORT Date of service: 02/25/2019 EXAM: Transesophageal echocardiogram with color flow Doppler. INDICATION Infection:Subacute bacterial endocarditis Mitral Valve E/A ratio0.0 TDI E/Lateral E'0.0E/Medial E'0.0 Reason For Test : Rule out endocarditis. PROCEDURE After obtaining informed consent, patient underwent transesophageal echo in the Echo Lab. Type of Sedation : Conscious Sedation Sedation was provided by anesthesiologist. Sedation was administered by . Sedation was achieved with versed,fentanyl intravenously. Transesophageal probe was inserted and advanced into esophagus without difficulty. Echo enhancement indication: R/O Septal defect. Echo enhancement agent administered: Agitated Saline The BRYCE was performed without complications. Throughout the procedure, the blood pressure, pulse oximetry, cardiac rhythm, and rate were monitored. The patient tolerated the procedure without adverse effects. Recovery from conscious sedation was uneventful and vital signs were stable. LEFT VENTRICLE The left ventricle is normal size. There is mild to moderate concentric left ventricular hypertrophy. The left ventricular function is normal. The left ventricular ejection fraction is within the normal range. LVEF is 50-55%. There is normal LV segmental wall motion. Transmitral Doppler flow pattern is Grade I-abnormal relaxation pattern. No left ventricle thrombus noted on this study. There is no ventricular septal defect visualized. There is no left ventricular aneurysm. There is no mass noted in the left ventricle. RIGHT VENTRICLE The right ventricle is normal size. There is normal right ventricular wall thickness. The right ventricular systolic function is normal. ATRIA The left atrium is mildly dilated. The right atrium size is normal. The interatrial septum is intact with no evidence for an atrial septal defect. AORTIC VALVE The aortic valve is calcified and displays decreased opening. The aortic valve is severely calcified. The aortic valve is trileaflet. Calcific degeneration with fusion of right and non-coronary cusps. There is moderate aortic regurgitation. There is mild valvular aortic stenosis. There is no aortic valvular vegetation. MITRAL VALVE The mitral valve is normal in structure. There is no evidence of mitral valve prolapse. There is no mitral valve stenosis. Mitral regurgitation is mild. TRICUSPID VALVE The tricuspid valve is normal in structure. There is mild tricuspid regurgitation. There is no tricuspid valve prolapse or vegetation. There is no tricuspid valve stenosis. PULMONIC VALVE The pulmonary valve is normal in structure. There is no pulmonic valvular regurgitation. There is no pulmonic valvular stenosis. GREAT VESSELS The aortic root is mildly enlarged. The ascending aorta is Mildly dilated. The pulmonary artery is normal. The IVC is normal in size and collapses >50% with inspiration. PERICARDIAL EFFUSION The pericardium appears normal. <Conclusion> The left ventricular function is normal. The left ventricular ejection fraction is within the normal range. LVEF is 50-55%. The aortic valve is calcified and displays decreased opening. The aortic valve is severely calcified. The aortic valve is trileaflet. Calcific degeneration with fusion of right and non-coronary cusps. The aortic root is mildly enlarged. The ascending aorta is Mildly dilated.
== END 2019-02-25 15:50 | DRG 871 ==
LOC: H.ER 15:53 → H.ERHOLD 16:34 → H.TEL 20:46
PROC: B246ZZ4 Ultrasonography of Right and Left Heart, Transesophageal (ICD-10-PCS; principal; 2019-02-25 11:30)
DX: R78.81 Bacteremia (principal); J18.9 Pneumonia, unspecified organism; B95.4 Other streptococcus as the cause of diseases classified elsewhere; Z85.72 Personal history of non-Hodgkin lymphomas; Z87.01 Personal history of pneumonia (recurrent); Z92.21 Personal history of antineoplastic chemotherapy; Z92.3 Personal history of irradiation; Z96.652 Presence of left artificial knee joint; Z87.891 Personal history of nicotine dependence; Z87.81 Personal history of (healed) traumatic fracture

== ENCOUNTER 2019-02-25 16:12 | Inpatient (IN) | payer OTHER ==
[2019-02-25 16:40] VITALS: BMI 27.8
[2019-02-25] MEDS: Piperacillin/Tazobact 3.375 GM in Sodium Chloride 0.9% 100 ML IVPB SCH (21:21)
[2019-02-26] MEDS: Piperacillin/Tazobact 3.375 GM in Sodium Chloride 0.9% 100 ML IVPB SCH ×4 (04:16→21:13)
[2019-02-26] MEDS: Pantoprazole 40 mg EC Tab PO SCH (08:32)
[2019-02-26] MEDS: Enoxaparin 40 mg Syringe SC SCH (08:32)
--- NOTE | 2019-02-26 11:46 | CP.PCM.HP ---
<Shanae Maciaskirstie - Last Filed: 02/26/19 12:33> History of Present Illness - History of Present Illness History of Present Illness: Abx day #5 78 yr old M with PMHx of lymphoma in remission admitted for continued antibiotic treatment of his bacteremia diagnosed during previous admission. Currently on treatment with vanco/zosyn. Pt is afebrile today and is hemodynamically stable. Tmax 100F overnight. PMD: Dr. Alonzo ([facility] [place]) PMHx: lymphoma in remission, hx multiple clavicle fractures SurgHx: left total knee replacement, right zygomatic bone repair, FMHx: non contributory SocHx: denies Etoh/drugs; former tobacco use-quit 50 yrs ago Medications: none Allergies: NKDA Present on Admission - Present on Admission Any Indicators Present on Admission: No Past Patient History - Past Medical History & Family History Past Medical History?: Yes - Past Social History Smoking Status: Former Smoker - CARDIAC Hx Cardiac Disorders: No - PULMONARY Hx Respiratory Disorders: No - NEUROLOGICAL Hx Neurological Disorder: No - HEENT Hx HEENT Problems: No - RENAL Hx Chronic Kidney Disease: No - ENDOCRINE/METABOLIC Hx Endocrine Disorders: No - HEMATOLOGICAL/ONCOLOGICAL Hx Blood Disorders: Yes Hx AIDS: No Hx Human Immunodeficiency Virus (HIV): No - INTEGUMENTARY Hx Dermatological Problems: No - MUSCULOSKELETAL/RHEUMATOLOGICAL Hx Musculoskeletal Disorders: No Hx Falls: No - GASTROINTESTINAL Hx Gastrointestinal Disorders: No - GENITOURINARY/GYNECOLOGICAL Hx Genitourinary Disorders: No - PSYCHIATRIC Hx Substance Use: No - SURGICAL HISTORY Other/Comment: Left knee replacement. left shoulder. Bilateral renal stents. Right eye surgery - ANESTHESIA Hx Anesthesia: Yes Hx Anesthesia Reactions: No Meds Allergies/Adverse Reactions: Allergies Allergy/AdvReac Type Severity Reaction Status Date / Time No Known Allergies Allergy Verified 02/22/19 16:16 Physical Exam - Constitutional Appears: Well - Head Exam Head Exam: ATRAUMATIC, NORMAL INSPECTION, NORMOCEPHALIC - Respiratory Exam Respiratory Exam: Clear to Auscultation Bilateral, NORMAL BREATHING PATTERN - Cardiovascular Exam Cardiovascular Exam: REGULAR RHYTHM - Extremities Exam Extremities exam: Positive for: normal inspection - Neurological Exam Neurological exam: Alert, Normal Gait - Skin Skin Exam: Dry, Intact, Normal Color, Warm Results - Vital Signs Recent Vital Signs: Last Vital Signs Temp 98.2 F 02/26/19 08:18 Pulse 85 05/18/19 08:18 Resp 20 02/26/19 08:18 BP 123/76 02/26/19 08:18 Pulse Ox 94 L 02/26/19 08:18 Assessment & Plan - Assessment and Plan (Free Text) Assessment: 78 yr old M with PMHx of lymphoma in remission re-admitted for bacteremia likely secondary to a pulmonary source. Pt is afebrile today and is hemodynamically stable. Treatment with antibiotics for total of 10 days. Plan: Bacteremia: Abx day #5 -likely pulmonary source -Blood cultures: gram + cocci x 2, repeat cultures negative after 24 hours, sensitivities pending -repeat CXR on 02/23: improvement in aeration and atelectasis -ECHO: LVEF 55-60%, moderate aortic regurgitation, thickened leaflets and cannot rule out vegetation. Mild aortic valvular stenosis. Mild mitral valve regurgitation. Mild Tricuspid regurgitation. RSVP 23mm Hg. -BRYCE ordered, cardiology consult pending -NPO -Vancomycin 1gm Q12/Zosyn 3.375 Q6H Prophylaxis: Lovenox 40mg SC QD Code Status full code <Amy Quick - Last Filed: 02/26/19 16:47> Results - Vital Signs Recent Vital Signs: Last Vital Signs Temp 98.4 F 02/26/19 15:21 Pulse 83 02/26/19 15:21 Resp 20 02/26/19 15:21 BP 134/82 02/26/19 15:21 Pulse Ox 99 02/26/19 15:21 Attending/Attestation - Attestation I have personally seen and examined this patient.: Yes I have fully participated in the care of the patient.: Yes I have reviewed all pertinent clinical information: Yes Notes (Text): Bacteremia, Strep sanguis etiology unclear Vegetation/Endocarditis ruled out by Negative BRYCE - BRYCE done did not show any vegetation - Pt admitted to TCU to continue IV antibiotics - cont IV Zosyn and Vanco x 10 days - Echo : thickened leaflets - rpt Blood c/s : negative so far -check Vanco trough
[2019-02-27] MEDS: Piperacillin/Tazobact 3.375 GM in Sodium Chloride 0.9% 100 ML IVPB SCH ×5 (04:55→23:40)
[2019-02-27] MEDS: Enoxaparin 40 mg Syringe SC SCH (08:52)
[2019-02-27] MEDS: Pantoprazole 40 mg EC Tab PO SCH (08:52)
[2019-02-27] MEDS: Lactobacillus Acidophilus 500 MU Cap PO SCH (16:01)
[2019-02-28] MEDS: Piperacillin/Tazobact 3.375 GM in Sodium Chloride 0.9% 100 ML IVPB SCH ×4 (05:27→23:30)
[2019-02-28 09:21] LABS: BLOOD UREA NITROGEN 17 mg/dl (9-20); CALCIUM 8.7 mg/dL (8.4-10.2); GFR NON-AFRICAN AMERICAN > 60
[2019-02-28] MEDS: Lactobacillus Acidophilus 500 MU Cap PO SCH ×2 (09:59→17:24)
[2019-02-28] MEDS: Enoxaparin 40 mg Syringe SC SCH (09:59)
[2019-02-28] MEDS: Pantoprazole 40 mg EC Tab PO SCH (10:00)
[2019-03-01] MEDS: Piperacillin/Tazobact 3.375 GM in Sodium Chloride 0.9% 100 ML IVPB SCH (06:15)
[2019-03-01] MEDS: Pantoprazole 40 mg EC Tab PO SCH (08:31)
[2019-03-01] MEDS: Lactobacillus Acidophilus 500 MU Cap PO SCH ×2 (08:31→16:09)
[2019-03-01] MEDS: Enoxaparin 40 mg Syringe SC SCH (08:31)
--- NOTE | 2019-03-01 11:00 | CP.PCM.CON ---
History of Present Illness - History of Present Illness History of Present Illness: 78 yr old M with PMHx of lymphoma in remission admitted with fever and bacteremia BRYCE negative CXR + infilktrates Blood cultures + for cocci 2/2 sets IV rx started for bacteremic pneumonia transferred to TCU for further IV antibiotics PMHx: lymphoma in remission, hx multiple clavicle fractures SurgHx: left total knee replacement, right zygomatic bone repair, FMHx: non contributory SocHx: denies Etoh/drugs; former tobacco use-quit 50 yrs ago Medications: none Allergies: NKDA Review of Systems - Review of Systems All systems: reviewed and no additional remarkable complaints except - Constitutional Constitutional: As Per HPI - EENT Eyes: absent: As Per HPI, Blind Spots, Blurred Vision, Change in Vision, Decreased Night Vision, Diplopia, Discharge, Dry Eye, Exophthalmos, Floaters, Irritation, Itchy Eyes, Loss of Peripheral Vision, Pain, Photophobia, Requires Corrective Lenses, Sees Flashes, Spots in Vision, Tunnel Vision, Other Visual Disturbances, Loss of Vision, Other Ears: absent: As Per HPI, Decreased Hearing, Ear Discharge, Ear Pain, Tinnitus, Abnormal Hearing, Disequilibrium, Dizziness, Other Nose/Mouth/Throat: absent: As Per HPI, Epistaxis, Nasal Congestion, Nasal Discharge, Nasal Obstruction, Nasal Trauma, Nose Pain, Post Nasal Drip, Sinus Pain, Sinus Pressure, Bleeding Gums, Change in Voice, Dental Pain, Dry Mouth, Dysphagia, Halitosis, Hoarsness, Lip Swelling, Mouth Lesions, Mouth Pain, Odynophagia, Sore Throat, Throat Swelling, Tongue Swelling, Facial Pain, Neck Pain, Neck Mass, Other - Cardiovascular Cardiovascular: absent: As Per HPI, Acrocyanosis, Chest Pain, Chest Pain at Rest, Chest Pain with Activity, Claudication, Diaphoresis, Dyspnea, Dyspnea on Exertion, Edema, Irregular Heart Rhythm, Pain Radiating to Arm/Neck/Jaw, Leg Edema, Leg Ulcers, Lightheadedness, Orthopnea, Palpitations, Paroxysmal Nocturnal Dyspnea, Pedal Edema, Radiating Pain, Rapid Heart Rate, Slow Heart Rate, Syncope, Other - Respiratory Respiratory: absent: As Per HPI, Cough, Dyspnea, Hemoptysis, Dyspnea on Exertion, Wheezing, Snoring, Stridor, Pain on Inspiration, Chest Congestion, Excessive Mucous Production, Change in Mucous Color, Pain with Coughing, Other - Gastrointestinal Gastrointestinal: absent: As Per HPI, Abdominal Pain, Belching, Bloating, Change in Bowel Habits, Change in Stool Character, Coffee Ground Emesis, Constipation, Cramping, Diarrhea, Dyspepsia, Dysphagia, Early Satiety, Excessive Flatus, Fecal Incontinence, Heartburn, Hematemesis, Hematochezia, Loose Stools, Melena, Nausea, Odynophagia, Temesmus, Vomiting, Other - Genitourinary Genitourinary: absent: As Per HPI, Change in Urinary Stream, Difficulty Urinating, Dysuria, Flank Pain, Hematuria, Pyuria, Nocturia, Urinary Incontinence, Urinary Frequency, Urinary Hesitance, Urinary Urgency, Voiding Freq/Small Amts, Freq UTI, Hx Renal/Bladder Calculi, Hx /Renal Surgery, Bladde r Distension, Other - Musculoskeletal Musculoskeletal: absent: As Per HPI, Abnormal Gait, Arthralgias, Atrophy, Back Pain, Deformity, Joint Swelling, Limited Range of Motion, Loss of Height, Muscle Cramps, Muscle Weakness, Myalgias, Neck Pain, Numbness, Radiating Pain into Limb, Stiffness, Tingling, Other - Integumentary Integumentary: absent: As Per HPI, Acne, Alopecia, Bleeding Lesions, Change in Hair, Change in Nails, Change in Pigmentation, Changing Lesions, Dry Skin, Erythema, Furuncle, Hirsutism, Lesions, New Lesions, Non-Healing Lesions, Photosensitivity, Pruritus, Rash, Skin Pain, Skin Ulcer, Sores, Striae, Swelling, Unusual Bruising, Wounds, Jaundice, Other - Neurological Neurological: absent: As Per HPI, Abnormal Gait, Abnormal Hearing, Abnormal Movements, Abnormal Speech, Behavioral Changes, Burning Sensations, Confusion, Convulsions, Disequilibrium, Dizziness, Numbness, Focal Weakness, Frequent Falls, Headaches, Lack of Coordination, Loss of Vision, Memory Loss, Paresthesias, Radicular Pain, Restless Legs, Sensory Deficit, Syncope, Tingling, Tremor, Vertigo, Weakness, Other Visual Disturbances, Other - Psychiatric Psychiatric: absent: As Per HPI, Abnormal Sleep Pattern, Anhedonia, Anxiety, Auditory Hallucinations, Behavioral Changes, Change in Appetite, Change in Libido, Confusion, Depression, Difficulty Concentrating, Hallucinations, Homicidal Ideation, Hopelessness, Irritability, Memory Loss, Mood Swings, Panic Attacks, Paranoia, Suicidal Ideation, Visual Hallucinations, Tactile Hallucinations, Other - Endocrine Endocrine: absent: As Per HPI, Change in Body Appearance, Change in Libido, Cold Intolorance, Deepening of Voice, Excessive Sweating, Fatigue, Flushing, Heat Intolorance, Increase in Ring/Shoe/Hat Size, Palpitations, Polydipsia, Polyphagia, Polyuria, Other - Hematologic/Lymphatic Hematologic: absent: As Per HPI, Easy Bleeding, Easy Bruising, Lymphadenopathy, Other Past Patient History - Past Medical History & Family History Past Medical History?: Yes - Past Social History Smoking Status: Former Smoker - CARDIAC Hx Cardiac Disorders: No - PULMONARY Hx Respiratory Disorders: No - NEUROLOGICAL Hx Neurological Disorder: No - HEENT Hx HEENT Problems: No - RENAL Hx Chronic Kidney Disease: No - ENDOCRINE/METABOLIC Hx Endocrine Disorders: No - HEMATOLOGICAL/ONCOLOGICAL Hx Blood Disorders: Yes Hx AIDS: No Hx Human Immunodeficiency Virus (HIV): No - INTEGUMENTARY Hx Dermatological Problems: No - MUSCULOSKELETAL/RHEUMATOLOGICAL Hx Musculoskeletal Disorders: No Hx Falls: No - GASTROINTESTINAL Hx Gastrointestinal Disorders: No - GENITOURINARY/GYNECOLOGICAL Hx Genitourinary Disorders: No - PSYCHIATRIC Hx Substance Use: No - SURGICAL HISTORY Other/Comment: Left knee replacement. left shoulder. Bilateral renal stents. Right eye surgery - ANESTHESIA Hx Anesthesia: Yes Hx Anesthesia Reactions: No Meds Allergies/Adverse Reactions: Allergies Allergy/AdvReac Type Severity Reaction Status Date / Time No Known Allergies Allergy Verified 02/22/19 16:16 - Medications Medications: Current Medications Acetaminophen (Tylenol 325mg Tab) 650 mg PO Q6 PRN PRN Reason: Fever >100.4 F Acetaminophen (Tylenol 325mg Tab) 650 mg PO Q6 PRN PRN Reason: Pain, Mild (1-3) Enoxaparin Sodium (Lovenox) 40 mg SC DAILY [facility]; Protocol Ceftriaxone Sodium 1 gm/ (Sodium Chloride) 100 mls @ 100 mls/hr IVPB DAILY [facility]; Protocol Lactobacillus Acidophilus (Bacid Acidophilus) 1 cap PO BID [facility] Last Admin: 03/01/19 08:31 Dose: 1 cap Pantoprazole Sodium (Protonix Ec Tab) 40 mg PO DAILY [facility] Last Admin: 03/01/19 08:31 Dose: 40 mg Physical Exam - Constitutional Appears: No Acute Distress, Cachectic, Chronically Ill - Head Exam Head Exam: ATRAUMATIC, NORMAL INSPECTION, NORMOCEPHALIC - Eye Exam Eye Exam: EOMI, Normal appearance, PERRL Pupil Exam: NORMAL ACCOMODATION, PERRL - ENT Exam ENT Exam: Mucous Membranes Moist, Normal Exam - Neck Exam Neck exam: Positive for: Normal Inspection - Respiratory Exam Respiratory Exam: Decreased Breath Sounds, Clear to Auscultation Bilateral, P rolonged Expiratory Phase - Cardiovascular Exam Cardiovascular Exam: REGULAR RHYTHM - GI/Abdominal Exam GI & Abdominal Exam: Normal Bowel Sounds, Soft. absent: Tenderness - Rectal Exam Rectal Exam: Deferred - Exam Exam: NORMAL INSPECTION - Extremities Exam Extremities exam: Positive for: normal inspection - Back Exam Back exam: NORMAL INSPECTION - Neurological Exam Neurological exam: Alert, CN II-XII Intact, Normal Gait, Oriented x3, Reflexes Normal - Psychiatric Exam Psychiatric exam: Normal Affect, Normal Mood - Skin Skin Exam: Dry, Intact, Normal Color, Warm Results - Vital Signs Recent Vital Signs: Last Vital Signs Temp 98 F 03/01/19 08:37 Pulse 86 03/01/19 08:37 Resp 18 03/01/19 08:37 BP 123/64 03/01/19 08:37 Pulse Ox 99 03/01/19 08:37 - Labs Result Diagrams: 02/28/19 08:45 Assessment & Plan (1) Bacteremia Status: Acute (2) Pneumonia Status: Acute - Assessment and Plan (Free Text) Assessment: cont IV then PO antibiotics for total 14 days Plan: switch to Rocephin' d/c on cefzil 500mg bid upon discharge
--- NOTE | 2019-03-01 13:06 | CP.PCM.PN ---
Subjective - Date & Time of Evaluation Date of Evaluation: 03/01/19 Time of Evaluation: 11:00 - Subjective Subjective: Patient seen and examined. Denied any complaint. Objective - Vital Signs/Intake and Output Vital Signs (last 24 hours): Temp Pulse Resp BP Pulse Ox 98 F 86 18 123/64 99 03/01/19 08:37 03/01/19 08:37 03/01/19 08:37 03/01/19 08:37 03/01/19 08:37 - Medications Medications: Current Medications Acetaminophen (Tylenol 325mg Tab) 650 mg PO Q6 PRN PRN Reason: Fever >100.4 F Acetaminophen (Tylenol 325mg Tab) 650 mg PO Q6 PRN PRN Reason: Pain, Mild (1-3) Enoxaparin Sodium (Lovenox) 40 mg SC DAILY [facility]; Protocol Ceftriaxone Sodium 1 gm/ (Sodium Chloride) 100 mls @ 100 mls/hr IVPB DAILY [facility]; Protocol Lactobacillus Acidophilus (Bacid Acidophilus) 1 cap PO BID [facility] Last Admin: 03/01/19 08:31 Dose: 1 cap Pantoprazole Sodium (Protonix Ec Tab) 40 mg PO DAILY [facility] Last Admin: 03/01/19 08:31 Dose: 40 mg - Labs Labs: 02/28/19 08:45 - Constitutional Appears: No Acute Distress - Head Exam Head Exam: ATRAUMATIC - Eye Exam Eye Exam: absent: Scleral icterus - ENT Exam ENT Exam: Mucous Membranes Moist - Neck Exam Neck Exam: absent: Meningismus - Respiratory Exam Respiratory Exam: absent: Rales, Rhonchi, Wheezes, Respiratory Distress - Cardiovascular Exam Cardiovascular Exam: REGULAR RHYTHM, +S1, +S2 - GI/Abdominal Exam GI & Abdominal Exam: Soft. absent: Tenderness - Rectal Exam Rectal Exam: Deferred - Neurological Exam Neurological Exam: Alert, Oriented x3 - Psychiatric Exam Psychiatric exam: Normal Affect - Skin Skin Exam: Dry, Intact Assessment and Plan - Assessment and Plan (Free Text) Assessment: 78 yo male with history of Lymphoma admitted for IV antibiotic because of Stre ptococcal bacteremia. 1. Bacteremia blood culture grew Streptococcus Sangius I antibiotic switch to Ceftriaxone 2. DVT Prophylaxis Lovenox 40mg SC QD
[2019-03-02 05:42] LABS: HEMOGLOBIN 11.6 g/dL (12.0-18.0); MEAN CELL VOLUME 93.6 fl (80.0-94.0); MEAN CORPUSCULAR HGB CONC 33.1 g/dL (33.0-37.0); RBC 3.74 Mil/uL (4.40-5.90); RED CELL DISTRIBUTION WIDTH 14.3 % (11.5-14.5); WHITE BLOOD COUNT 5.5 K/uL (4.8-10.8)
[2019-03-02 05:54] LABS: BLOOD UREA NITROGEN 19 mg/dl (9-20); CALCIUM 8.6 mg/dL (8.4-10.2); GFR NON-AFRICAN AMERICAN > 60
[2019-03-02] MEDS: Lactobacillus Acidophilus 500 MU Cap PO SCH ×2 (08:37→16:19)
[2019-03-02] MEDS: Enoxaparin 40 mg Syringe SC SCH (08:38)
[2019-03-02] MEDS: Pantoprazole 40 mg EC Tab PO SCH (08:38)
[2019-03-02 20:11] VITALS: TEMP 98.2
[2019-03-03] MEDS: Lactobacillus Acidophilus 500 MU Cap PO SCH (08:47)
[2019-03-03] MEDS: Pantoprazole 40 mg EC Tab PO SCH (08:47)
[2019-03-03] MEDS: Enoxaparin 40 mg Syringe SC SCH ×2 (08:47→08:57)
--- NOTE | 2019-03-03 10:40 | CP.PCM.DIS ---
Provider - Provider Date of Admission: 02/25/19 16:40 Attending physician: Walker Anthony MD Consults: 03/01/19 10:35 Infectious Disease Consult Routine Comment: Consulting Provider: Karl Roberts Consulting Physician: Karl Roberts Reason for Consult: f/u consult; bacteremia Time Spent in preparation of Discharge (in minutes): 25 Diagnosis - Discharge Diagnosis (1) Bacteremia Status: Acute Comment: completed 10 day course of IV antibiotics. patient to follow up with PCP within 2 weeks Hospital Course - Lab Results Lab Results: Most Recent Lab Values WBC 5.5 K/uL (4.8-10.8) 03/02/19 05:25 RBC 3.74 Mil/uL (4.40-5.90) L 03/02/19 05:25 Hgb 11.6 g/dL (12.0-18.0) L 03/02/19 05:25 Hct 35.0 % (35.0-51.0) 03/02/19 05:25 MCV 93.6 fl (80.0-94.0) 03/02/19 05:25 MCH 31.0 pg (27.0-31.0) 03/02/19 05:25 MCHC 33.1 g/dL (33.0-37.0) 03/02/19 05:25 RDW 14.3 % (11.5-14.5) 03/02/19 05:25 Plt Count 320 K/uL (130-400) 03/02/19 05:25 Sodium 134 mmol/l (132-148) 03/02/19 05:25 Potassium 4.2 MMOL/L (3.6-5.0) 03/02/19 05:25 Chloride 99 mmol/L (98-107) 03/02/19 05:25 Carbon Dioxide 28 mmol/L (22-30) 03/02/19 05:25 Anion Gap 11 (10-20) 03/02/19 05:25 BUN 19 mg/dl (9-20) 03/02/19 05:25 Creatinine 0.9 mg/dl (0.8-1.5) 03/02/19 05:25 Est GFR ( Amer) > 60 03/02/19 05:25 Est GFR (Non-Af Amer) > 60 03/02/19 05:25 Random Glucose 88 mg/dL (75-110) 03/02/19 05:25 Calcium 8.6 mg/dL (8.4-10.2) 03/02/19 05:25 Vancomycin Trough 14.8 ug/mL (5.0-10.0) H 02/28/19 08:45 - Hospital Course Hospital Course: 78 yo male with history of Lymphoma in remission was called back for admission after being seen in the ER for URI because of positive blood culture. Patient started on Vanco and Zosyn and then later transferred to TCU for completion of 10 day course of IV antibiotics. Final report of blood culture: Streptococcus Sangius I sensitive to all antibiotics given. Patient was discharged in stable condition upon completion of IV antibiotics. Discharge Exam - Head Exam Head Exam: ATRAUMATIC, NORMAL INSPECTION, NORMOCEPHALIC - Eye Exam Eye Exam: Normal appearance - ENT Exam ENT Exam: Mucous Membranes Moist - Respiratory Exam Respiratory Exam: absent: Rales, Rhonchi, Wheezes, Respiratory Distress - Cardiovascular Exam Cardiovascular Exam: REGULAR RHYTHM, +S1, +S2 - GI/Abdominal Exam GI & Abdominal Exam: Soft. absent: Tenderness - Rectal Exam Rectal Exam: Deferred - Back Exam Back exam: NORMAL INSPECTION - Neurological Exam Neurological exam: Alert, Oriented x3 - Psychiatric Exam Psychiatric exam: Normal Affect - Skin Skin Exam: Dry, Intact Discharge Plan - Follow Up Plan Condition: GOOD Disposition: HOME/ ROUTINE
[2019-03-03 16:21] VITALS: BP 115/70; PULSE 72; RESP 20; O2SAT 100
== END 2019-03-03 16:19 | disposition home or self-care (01) | DRG 194 ==
LOC: H.TCU 16:40
DX: J18.9 Pneumonia, unspecified organism (principal); R78.81 Bacteremia; Z87.891 Personal history of nicotine dependence; Z96.652 Presence of left artificial knee joint; B95.1 Streptococcus, group B, as the cause of diseases classified elsewhere; Z85.72 Personal history of non-Hodgkin lymphomas